=== PATIENT | male | born 1970 | race Hispanic/Latino ===

== ENCOUNTER 2017-04-15 14:36 | Emergency (ER) | payer OTHER ==
[2017-04-15 14:48] VITALS: BP 171/105
[2017-04-15 15:19] LABS: Bilirubin,Urine NEG (Negative); Blood,Urine NEG (Negative); Ketones,Urine NEG (Negative); Leukocyte Esterase,Urine NEG (Negative); Nitrite,Urine NEG (Negative); Protein,Urine <15 mg/dL mg/dL (Negative); Urobilinogen,Urine < 2.0 mg/dL (<2.0)
[2017-04-15 15:23] LABS: Basophils % (Auto) 0.2 % (0.0-1.8); Hematocrit 33.8 % (35.5-45.6); Hemoglobin 10.4 gm/dl (11.8-15.2); Mean Corpuscular HGB Conc 31 % (32-34); Mean Corpuscular Hemoglobin 19 pg (28-32); Mean Corpuscular Volume 61 fl (84-94); Platelet Count 504 K/mm3 (140-440); Red Blood Count 5.53 M/mm3 (3.65-5.03); Red Cell Distribution Width 17.8 % (13.2-15.2); White Blood Count 7.3 K/mm3 (4.5-11.0)
[2017-04-15 15:37] LABS: Alanine Aminotransferase 15 units/L (7-56); Albumin 3.9 g/dL (3.9-5); Albumin/Globulin Ratio 1.1 %; Alkaline Phosphatase 90 units/L (35-129); Anion Gap 18 mmol/L; BUN/Creatinine Ratio 14; Blood Urea Nitrogen 10 mg/dL (9-20); Calcium 9.4 mg/dL (8.4-10.2); Carbon Dioxide 28 mmol/L (22-30); Glucose 126 mg/dL (75-100); Lipase 26 units/L (13-60); Potassium 4.5 mmol/L (3.6-5.0); Sodium 138 mmol/L (137-145); Total Protein 7.4 g/dL (6.3-8.2)
== END 2017-04-15 23:00 | disposition left against medical advice (07) ==
LOC: ED 14:36
DX: R10.9 Unspecified abdominal pain (principal); Z53.21 Procedure and treatment not carried out due to patient leaving prior to being seen by health care provider
CPT/HCPCS: 36415; 80053; 81001; 83690; 85025

== ENCOUNTER 2017-05-26 03:43 | Emergency (ER) | payer SELFPAY ==
[2017-05-26 04:39] VITALS: BP 170/105
[2017-05-26] MEDS ORDERED: TORADOL ONE (06:06)
[2017-05-26] MEDS ORDERED: TORADOL IV ONE (06:08)
[2017-05-26 06:34] LABS: Basophils # (Auto) 0.1 K/mm3 (0.0-0.1); Eosinophils # (Auto) 0.1 K/mm3 (0.0-0.4); Eosinophils % (Auto) 1.4 % (0.0-4.3); Hematocrit 30.3 % (35.5-45.6); Hemoglobin 9.2 gm/dl (11.8-15.2); Lymphocytes % (Auto) 25.2 % (13.4-35.0); Mean Corpuscular HGB Conc 30 % (32-34); Monocytes # (Auto) 0.8 K/mm3 (0.0-0.8); Monocytes % (Auto) 10.5 % (0.0-7.3); Platelet Count 477 K/mm3 (140-440); Red Blood Count 5.15 M/mm3 (3.65-5.03); Red Cell Distribution Width 18.3 % (13.2-15.2)
[2017-05-26 06:38] LABS: Mean Corpuscular Hemoglobin 18 pg (28-32); Mean Corpuscular Volume 59 fl (84-94)
[2017-05-26 06:48] LABS: BUN/Creatinine Ratio 14; Blood Urea Nitrogen 10 mg/dL (9-20); Calcium 9.1 mg/dL (8.4-10.2); Hemolysis Index 8
[2017-05-26 08:53] LABS: Bilirubin,Urine NEG (Negative); Blood,Urine NEG (Negative); Color,Urine Yellow (Yellow); Mucus,Urine FEW /HPF; Nitrite,Urine NEG (Negative); Protein,Urine <15 mg/dL mg/dL (Negative); WBC,Urine < 1.0 /HPF (0.0-6.0)
== END 2017-05-26 06:30 | disposition left against medical advice (07) ==
LOC: ED 03:43
DX: R10.9 Unspecified abdominal pain (principal); Z53.21 Procedure and treatment not carried out due to patient leaving prior to being seen by health care provider
CPT/HCPCS: 36415; 80048; 81001; 85025; J1885

== ENCOUNTER 2017-06-11 17:24 | Emergency (ER) | payer SELFPAY | END 2017-06-11 17:47 | disposition left against medical advice (07) | LOC: ED 17:24 | DX: R10.9 Unspecified abdominal pain (principal); Z53.21 Procedure and treatment not carried out due to patient leaving prior to being seen by health care provider ==

== ENCOUNTER 2018-02-10 07:11 | Emergency (ER) | payer SELFPAY ==
[2018-02-10] MEDS ORDERED: MORPHINE ONE (07:29)
[2018-02-10] MEDS ORDERED: ZOFRAN ONE (07:29)
[2018-02-10] MEDS ORDERED: MORPHINE IV ONE ×3 (07:34→08:58)
[2018-02-10] MEDS ORDERED: ZOFRAN IV ONE (07:34)
[2018-02-10] MEDS ORDERED: NACL 0.9% 1000 ML 1,000 ML IV ONE (07:35)
[2018-02-10 07:42] LABS: Basophils # (Auto) 0.1 K/mm3 (0.0-0.1); Basophils % (Auto) 0.7 % (0.0-1.8); Eosinophils # (Auto) 0.1 K/mm3 (0.0-0.4); Eosinophils % (Auto) 0.6 % (0.0-4.3); Hematocrit 26.8 % (35.5-45.6); Hemoglobin 8.4 gm/dl (11.8-15.2); Lymphocytes # (Auto) 1.4 K/mm3 (1.2-5.4); Lymphocytes % (Auto) 15.6 % (13.4-35.0); Mean Corpuscular HGB Conc 31 % (32-34); Monocytes # (Auto) 0.8 K/mm3 (0.0-0.8); Monocytes % (Auto) 8.8 % (0.0-7.3); Platelet Count 476 K/mm3 (140-440); Red Blood Count 4.79 M/mm3 (3.65-5.03); Red Cell Distribution Width 19.7 % (13.2-15.2)
[2018-02-10 07:45] LABS: Mean Corpuscular Hemoglobin 17 pg (28-32); Mean Corpuscular Volume 56 fl (84-94)
[2018-02-10 07:46] LABS: INR 0.97 (0.87-1.13); Partial Thromboplastin Time 32.6 Sec. (24.2-36.6)
[2018-02-10 07:51] LABS: Alanine Aminotransferase 13 units/L (7-56); Albumin 3.8 g/dL (3.9-5); BUN/Creatinine Ratio 16; Blood Urea Nitrogen 11 mg/dL (9-20); Calcium 8.9 mg/dL (8.4-10.2); Hemolysis Index 4; Lipase 19 units/L (13-60)
--- NOTE | 2018-02-10 07:57 | XRay Report ---
AP CHEST: HISTORY: chest pain AP view of the chest demonstrates a normal mediastinal and cardiac contour with clear lungs and normal bony and soft tissue structures. 5 mm calcified left upper lobe granuloma is suspected. IMPRESSION: No acute cardiopulmonary process.
[2018-02-10] MEDS ORDERED: MORPHINE IM ONE (07:58)
[2018-02-10] MEDS ORDERED: BENADRYL PO ONE (07:58)
--- NOTE | 2018-02-10 08:18 | Emergency Department Report ---
ED General Adult HPI - General Chief complaint: Multiple Trauma Stated complaint: FALL BACK AND STOMACH PAIN Time Seen by Provider: 02/10/18 07:31 Source: patient Mode of arrival: Ambulatory Limitations: No Limitations - History of Present Illness Initial comments: 47-year-old male with a history of chron's disease presents to the emergency department after stating he had a fall while in a safety harness day before yesterday. 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 Patient did not fall to the ground and had no LOC. Patient states however that the pain has continued to increase in his lower left and back region. Patient states he is currently on methadone therapy however this is not controlling his pain. Patient states that he is able to urinate but has not urinated in the past 4 hours. Patient states secondary to the worsening of the pain he presented to the emergency department for evaluation. Patient denies any chest pain or shortness of breath. She denies any hematuria or hematochezia. Severity scale (0 -10): 10 - Related Data Previous Rx's Medication Instructions Recorded Last Taken Type HYDROcodone/APAP 5-325 [[place] 1 each PO Q6HR PRN #14 tablet 08/21/15 Unknown Rx 5/325] Ondansetron [Zofran Odt] 4 mg PO Q8H PRN #10 tab.rapdis 08/21/15 Unknown Rx predniSONE [Deltasone] 20 mg PO QDAY #5 tab 08/21/15 Unknown Rx Cyclobenzaprine [Flexeril] 10 mg PO TID PRN #21 tablet 02/10/18 Unknown Rx Allergies Allergy/AdvReac Type Severity Reaction Status Date / Time No Known Allergies Allergy Unverified 08/20/15 19:06 ED Review of Systems ROS: Stated complaint: FALL BACK AND STOMACH PAIN Other details as noted in HPI Constitutional: malaise, weakness. denies: chills, fever Eyes: denies: eye pain, eye discharge, vision change ENT: denies: ear pain, throat pain Respiratory: denies: cough, shortness of breath, wheezing Cardiovascular: denies: chest pain, palpitations Endocrine: no symptoms reported Gastrointestinal: abdominal pain. denies: nausea, diarrhea Genitourinary: other (retention). denies: urgency, dysuria Musculoskeletal: denies: back pain, joint swelling, arthralgia Skin: denies: rash, lesions Neurological: denies: headache, weakness, paresthesias Psychiatric: denies: anxiety, depression Hematological/Lymphatic: denies: easy bleeding, easy bruising ED Past Medical Hx - Past Medical History Hx Kidney Stones: Yes Additional medical history: Chron's Ds, - Social History Smoking Status: Current Every Day Smoker Substance Use Type: Other - Medications Home Medications: Home Medications Medication Instructions Recorded Confirmed Last Taken Type HYDROcodone/APAP 5-325 [[place] 1 each PO Q6HR PRN #14 tablet 08/21/15 Unknown Rx 5/325] Ondansetron [Zofran Odt] 4 mg PO Q8H PRN #10 tab.rapdis 08/21/15 Unknown Rx predniSONE [Deltasone] 20 mg PO QDAY #5 tab 08/21/15 Unknown Rx Cyclobenzaprine [Flexeril] 10 mg PO TID PRN #21 tablet 02/10/18 Unknown Rx ED Physical Exam - General Limitations: No Limitations General appearance: alert, other (awake; uncomfortable; moderate distress) - Head Head exam: Present: atraumatic, normocephalic - Eye Eye exam: Present: normal appearance - ENT ENT exam: Present: mucous membranes moist - Neck Neck exam: Present: normal inspection - Respiratory Respiratory exam: Present: normal lung sounds bilaterally. Absent: respiratory distress - Cardiovascular Cardiovascular Exam: Present: regular rate, normal rhythm. Absent: systolic murmur, diastolic murmur, rubs, gallop - GI/Abdominal GI/Abdominal exam: Present: soft, normal bowel sounds, other (diffuse abdominal tenderness; rectal examination shows brown stool which is guaiac negative with appropriate controls.) - Rectal Rectal exam: Present: deferred - exam: Present: normal inspection - Extremities Exam Extremities exam: Present: normal inspection - Back Exam Back exam: Present: tenderness (noted in the bilateral flank region), CVA tenderness (R), CVA tenderness (L) - Neurological Exam Neurological exam: Present: alert, oriented X3 - Psychiatric Psychiatric exam: Present: normal affect, normal mood - Skin Skin exam: Present: warm, dry, intact, normal color. Absent: rash ED Course Vital Signs 02/10/18 02/10/18 02/10/18 07:19 07:21 07:30 Temperature 97 F L Pulse Rate 85 85 82 Respiratory 9 L 18 13 Rate Blood Pressure 177/122 177/122 O2 Sat by Pulse 100 100 100 Oximetry 02/10/18 02/10/18 02/10/18 07:35 07:54 08:00 Temperature Pulse Rate 71 Respiratory 22 17 Rate Blood Pressure 162/103 169/104 O2 Sat by Pulse 89 99 Oximetry 02/10/18 02/10/18 08:16 08:30 Temperature Pulse Rate 77 66 Respiratory 16 11 L Rate Blood Pressure 169/104 171/105 O2 Sat by Pulse 97 100 Oximetry ED Medical Decision Making - Lab Data Result diagrams: 02/10/18 07:16 02/10/18 07:16 - Radiology Data Radiology results: report reviewed - Medical Decision Making While in the emergency Department patient received 2 doses of 4 mg of morphine IV. This intervention plus the addition of Flexeril by mouth therapy help to minimize his pain. Patient had a CT abdomen and pelvis showed no acute pathology. Patient made aware of this finding as well. Patient was noted to have a hemoglobin which was 8.4 and this was compared to prior values we had a hemoglobin of 9. Patient denied any active bright red blood per rectum and had a guaiac stool study which showed brown stool which was guaiac negative. Patient to be discharged with Flexeril therapy to take with his daily methadone therapy to control his pain. - Differential Diagnosis hematoma; pneumothorax; hemothorax; Anemia; Electrolyte abnormality Critical care attestation.: If time is entered above; I have spent that time in minutes in the direct care of this critically ill patient, excluding procedure time. ED Disposition Clinical Impression: Flank pain, acute, Crohns disease, Anemia, Acute myofascial strain of lumbar region Clinical Impression: (Ruled Out): Anemia aplastic aregenerative Disposition: - TO HOME OR SELFCARE Is pt being admited?: No Condition: Stable Instructions: Muscle Strain (ED), Flank Pain (ED) Prescriptions: Cyclobenzaprine [Flexeril] 10 mg PO TID PRN #21 tablet PRN Reason: Muscle Spasm Referrals: PRIMARY CARE, [Primary Care Provider] - 3-5 Days Time of Disposition: 09:52 Print Language: FRISIAN
--- NOTE | 2018-02-10 08:25 | Cat Scan Report ---
CT ABDOMEN PELVIS WITHOUT CONTRAST: HISTORY: Abdominal pain status post fall. COMPARISON: none. TECHNIQUE: Helical CT in 1.25mm intervals without IV contrast. Sagittal and coronal reconstructions. FINDINGS: Lung bases: Normal. Liver: Normal. Biliary system: Normal. Pancreas: Normal. Spleen: Normal. Kidneys/ureters/bladder: Normal. Adrenal glands: Normal. Aorta: Normal. Intestines: Normal. Appendix: Normal. Pelvic viscera: Normal. Ascites: None. Adenopathy: None. Musculoskeletal: Normal. IMPRESSION: Unremarkable CT scan of the abdomen and pelvis without contrast.
[2018-02-10 08:39] LABS: Bilirubin,Urine NEG (Negative); Blood,Urine NEG (Negative); Calcium Oxalate Crystals,Urine 1+; Color,Urine Yellow (Yellow); Mucus,Urine FEW /HPF; Protein,Urine <15 mg/dL mg/dL (Negative)
[2018-02-10] MEDS ORDERED: FLEXERIL PO ONE (08:57)
[2018-02-10 10:14] VITALS: BP 166/98
== END 2018-02-10 10:20 | disposition home or self-care (01) ==
LOC: ED 07:11
DX: S39.012A Strain of muscle, fascia and tendon of lower back, initial encounter (principal); D64.9 Anemia, unspecified; K50.90 Crohn's disease, unspecified, without complications; F17.200 Nicotine dependence, unspecified, uncomplicated; W14.XXXA Fall from tree, initial encounter; Y93.89 Activity, other specified; Y92.89 Other specified places as the place of occurrence of the external cause; Y99.8 Other external cause status
CPT/HCPCS: 36415; 71045; 74176; 80053; 81001; 83690; 83735; 85025; 85610; 85730; 96374; 96375; 99284; J2270; J2405

== ENCOUNTER 2019-01-07 03:37 | Inpatient (IN) | payer SELFPAY ==
[2019-01-07 04:19] LABS: Basophils # (Auto) 0.1 K/mm3 (0.0-0.1); Basophils % (Auto) 1.2 % (0.0-1.8); Eosinophils # (Auto) 0.1 K/mm3 (0.0-0.4); Eosinophils % (Auto) 1.3 % (0.0-4.3); Lymphocytes # (Auto) 1.7 K/mm3 (1.2-5.4); Lymphocytes % (Auto) 27.5 % (13.4-35.0); Mean Corpuscular HGB Conc 29 % (32-34); Monocytes # (Auto) 0.8 K/mm3 (0.0-0.8); Monocytes % (Auto) 12.3 % (0.0-7.3); Platelet Count 474 K/mm3 (140-440); Red Blood Count 4.66 M/mm3 (3.65-5.03)
[2019-01-07 04:20] LABS: Hematocrit 23.7 % (35.5-45.6); Hemoglobin 6.8 gm/dl (11.8-15.2); Mean Corpuscular Volume 51 fl (84-94)
[2019-01-07 04:43] LABS: Alanine Aminotransferase 11 units/L (7-56); Albumin 2.8 g/dL (3.9-5); BUN/Creatinine Ratio 13; Blood Urea Nitrogen 10 mg/dL (9-20); Calcium 8.4 mg/dL (8.4-10.2); Hemolysis Index 6
[2019-01-07 05:08] LABS: Bilirubin,Urine NEG (Negative); Blood,Urine NEG (Negative); Color,Urine Yellow (Yellow); Mucus,Urine FEW /HPF; Protein,Urine <15 mg/dL mg/dL (Negative); RBC,Urine < 1.0 /HPF (0.0-6.0); Urobilinogen,Urine < 2.0 mg/dL (<2.0); WBC,Urine < 1.0 /HPF (0.0-6.0)
--- NOTE | 2019-01-07 06:40 | Emergency Department Report ---
ED Abdominal Pain HPI - General Chief Complaint: Abdominal Pain Stated Complaint: ABDOMINAL PAIN Time Seen by Provider: 01/07/19 06:38 Source: patient, EMS Mode of arrival: Ambulatory Limitations: No Limitations - History of Present Illness Initial Comments: Patient is a 48-year-old male that presents emergency room with complaints of abdominal pain 6 months. Patient denies nausea vomiting. Patient states his pain is intermittent but came on about a week ago worse than ever. Patient states the pain right now is a 10 out of 10. Patient states the pain is better with rest and worse with lying flat and palpation. Patient denies blood in his stool. Patient denies change in his bowel movements. Patient denies fever and chills. Patient also complains of occasional dark stool and constipation. She states she's been out of his medications for his Crohn's for 6 months as well. MD Complaint: abdominal pain -: Sudden - Related Data Previous Rx's Medication Instructions Recorded Last Taken Type HYDROcodone/APAP 5-325 [[place] 1 each PO Q6HR PRN #14 tablet 08/21/15 Unknown Rx 5/325] Ondansetron [Zofran Odt] 4 mg PO Q8H PRN #10 tab.rapdis 08/21/15 Unknown Rx predniSONE [Deltasone] 20 mg PO QDAY #5 tab 08/21/15 Unknown Rx Cyclobenzaprine [Flexeril] 10 mg PO TID PRN #21 tablet 02/10/18 Unknown Rx Cyclobenzaprine [Flexeril] 10 mg PO TID PRN #30 tablet 03/01/18 Unknown Rx Menthol/Camphor [[place] 1 applicatio TP TID PRN #1 tube 03/01/18 Unknown Rx Ointment] Naproxen [Naprosyn] 500 mg PO BID PRN #30 tablet 03/01/18 Unknown Rx Allergies Allergy/AdvReac Type Severity Reaction Status Date / Time No Known Allergies Allergy Verified 09/02/18 18:50 ED Review of Systems ROS: Stated complaint: ABDOMINAL PAIN Other details as noted in HPI Constitutional: denies: chills, fever Eyes: denies: eye pain, eye discharge, vision change ENT: denies: ear pain, throat pain Respiratory: denies: cough, shortness of breath, wheezing Cardiovascular: denies: chest pain, palpitations Endocrine: no symptoms reported Gastrointestinal: abdominal pain, constipation, melena. denies: nausea, diarrhea Genitourinary: denies: urgency, dysuria Musculoskeletal: denies: back pain, joint swelling, arthralgia Skin: denies: rash, lesions Neurological: denies: headache, weakness, paresthesias Psychiatric: denies: anxiety, depression Hematological/Lymphatic: denies: easy bleeding, easy bruising ED Past Medical Hx - Past Medical History Previous Medical History?: Yes Hx Hypertension: Yes Hx Congestive Heart Failure: No Hx Diabetes: No Hx Kidney Stones: Yes Hx Asthma: No Hx COPD: No Additional medical history: Chron's Ds,. chronic knee - Surgical History Past Surgical History?: Yes Additional Surgical History: eye - Social History Smoking Status: Former Smoker Substance Use Type: None - Medications Home Medications: Home Medications Medication Instructions Recorded Confirmed Last Taken Type HYDROcodone/APAP 5-325 [[place] 1 each PO Q6HR PRN #14 tablet 08/21/15 Unknown Rx 5/325] Ondansetron [Zofran Odt] 4 mg PO Q8H PRN #10 tab.rapdis 08/21/15 Unknown Rx predniSONE [Deltasone] 20 mg PO QDAY #5 tab 08/21/15 Unknown Rx Cyclobenzaprine [Flexeril] 10 mg PO TID PRN #21 tablet 02/10/18 Unknown Rx Cyclobenzaprine [Flexeril] 10 mg PO TID PRN #30 tablet 03/01/18 Unknown Rx Menthol/Camphor [[place] 1 applicatio TP TID PRN #1 tube 03/01/18 Unknown Rx Ointment] Naproxen [Naprosyn] 500 mg PO BID PRN #30 tablet 03/01/18 Unknown Rx ED Physical Exam - General Limitations: No Limitations General appearance: alert, in no apparent distress - Head Head exam: Present: atraumatic, normocephalic - Eye Eye exam: Present: normal appearance - ENT ENT exam: Present: mucous membranes moist - Neck Neck exam: Present: normal inspection - Respiratory Respiratory exam: Present: normal lung sounds bilaterally. Absent: respiratory distress - Cardiovascular Cardiovascular Exam: Present: regular rate, normal rhythm. Absent: systolic murmur, diastolic murmur, rubs, gallop - GI/Abdominal GI/Abdominal exam: Present: soft, tenderness, normal bowel sounds. Absent: distended, guarding - Rectal Rectal exam: Present: deferred - Extremities Exam Extremities exam: Present: normal inspection - Back Exam Back exam: Present: normal inspection - Neurological Exam Neurological exam: Present: alert, oriented X3 - Psychiatric Psychiatric exam: Present: normal affect, normal mood - Skin Skin exam: Present: warm, dry, intact, normal color. Absent: rash ED Course Vital Signs 01/07/19 01/07/19 01/07/19 03:46 05:32 06:00 Temperature 98.7 F 98.4 F Pulse Rate 95 H 79 82 Respiratory 18 14 13 Rate Blood Pressure 156/101 153/99 Blood Pressure 159/100 [Left] O2 Sat by Pulse 100 100 100 Oximetry 01/07/19 01/07/19 07:00 07:40 Temperature 98.5 F Pulse Rate 66 Respiratory 14 Rate Blood Pressure 133/76 Blood Pressure [Left] O2 Sat by Pulse 100 Oximetry - Reevaluation(s) Reevaluation #1: I discussed all results with patient. Patient agrees with plan of care. She will be admitted to the hospitalist service. 01/07/19 08:19 Reevaluation #2: Patient has decided not to be admitted. 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 Patient states his driving. Patient was just given Dilaudid. Charge nurse notified and the local PD has been notified as well. I discussed the risks with patient of leaving the hospitalist medical advice and not being admitted. The patient voiced understanding of risks. Patient will sign an AMA form. 01/07/19 08:58 - Consultations Consultation #1: GI Paged. 01/07/19 08:20 Discussed case with GI, Dr. Glasgow. Dr. Glasgow wants patient given a PPI and nothing by mouth and admitted to the hospitalist service. 01/07/19 08:31 Consultation #2: Hospitalist consult. Hospitalist to admit patient. Bridge orders placed 01/07/19 08:31 ED Medical Decision Making - Lab Data Result diagrams: 01/07/19 03:48 01/07/19 03:48 - Radiology Data Radiology results: report reviewed CT ABDOMEN AND PELVIS WITH CONTRAST HISTORY: Abdominal pain, Crohn's disease COMPARISON: 09/02/2018 TECHNIQUE: Axial CT images were obtained through the abdomen and pelvis after 100 cc of Omnipaque 300 intravenously. Sagittal and coronal reformatted images. All CT scans at this location are performed using CT dose reduction for ALARA by means of automated exposure control. FINDINGS: CT ABDOMEN: Lung Bases: Clear. Liver: Borderline to mild hepatomegaly. No parenchymal disease or mass. Biliary: No significant abnormality. Spleen: Borderline to mild splenomegaly is stable. Pancreas: No significant abnormality. Adrenals: No significant abnormality. Kidneys: No significant abnormality. Lymphatics: No lymphadenopathy. Vasculature: No significant abnormality. Bowel/Peritoneum: No oral contrast was administered. There appear to be multiple relatively focal areas of circumferential bowel wall thickening and narrowing in the proximal, mid and distal small bowel. These findings are consistent with skipped lesions associated with Crohn's disease. There are a few borderline to mildly dilated loops of small bowel scattered throughout the abdomen measuring up to 3.5 cm in diameter. No obvious area of acute inflammation is appreciated. No free fluid, free air or abscess. The colon is grossly normal and contains moderate stool. The appendix is not confidently identified. No evidence for acute appendicitis. CT PELVIS: : No significant abnormality. Osseous Structures: No significant abnormality. Additional Findings: None IMPRESSION: Findings consistent with Crohn's disease as outlined above. No overwhelming change is appreciated since 09/02/2018 exam. - Medical Decision Making is a 48-year-old male that presents emergency room with complaints of abdominal pain 6 months. Patient has a long history of Crohn's but has not had any specialty care or treatment for his Crohn's. Patient found to have a Crohn's flareup as well as lots of abdominal pain and severe anemia. Patient had change in his stool color to dark. Patient complains of melena. Patient originally was admitted to the hospitalist service but patient eventually decided not to be admitted and signed out AMA. I discussed all the risks with patient. Patient was of sound mind and body to make the decision to leave the hospital AGAINST MEDICAL ADVICE. Patient signed AMA. Patient voiced und erstanding of risks of leaving the hospital AGAINST MEDICAL ADVICE. GI was consult. - Differential Diagnosis Crohn's disease. Nichole. Upper GI bleed. Abdominal pain. Critical Care Time: Yes Critical care attestation.: If time is entered above; I have spent that time in minutes in the direct care of this critically ill patient, excluding procedure time. Critical Care Time: 45 minutes ED Disposition Clinical Impression: Melena Anemia Qualifiers: Anemia type: unspecified type Qualified Code(s): D64.9 - Anemia, unspecified Abdominal pain Qualifiers: Abdominal location: generalized Qualified Code(s): R10.84 - Generalized abdominal pain Crohn disease Qualifiers: Gastrointestinal tract location: small intestine Digestive disease complication type: with rectal bleeding Qualified Code(s): K50.011 - Crohn's disease of small intestine with rectal bleeding Disposition: 07 LEFT AGAINST MED ADVICE Is pt being admited?: Yes Does the pt Need Aspirin: No Condition: Critical Time of Disposition: 08:24
[2019-01-07 07:18] VITALS: BP 133/76
[2019-01-07] MEDS ORDERED: DILAUDID IV ONE ×2 (07:31→08:17)
--- NOTE | 2019-01-07 07:57 | Cat Scan Report ---
CT ABDOMEN AND PELVIS WITH CONTRAST HISTORY: Abdominal pain, Crohn's disease COMPARISON: 09/02/2018 TECHNIQUE: Axial CT images were obtained through the abdomen and pelvis after 100 cc of Omnipaque 300 intravenously. Sagittal and coronal reformatted images. All CT scans at this location are performed using CT dose reduction for ALARA by means of automated exposure control. FINDINGS: CT ABDOMEN: Lung Bases: Clear. Liver: Borderline to mild hepatomegaly. No parenchymal disease or mass. Biliary: No significant abnormality. Spleen: Borderline to mild splenomegaly is stable. Pancreas: No significant abnormality. Adrenals: No significant abnormality. Kidneys: No significant abnormality. Lymphatics: No lymphadenopathy. Vasculature: No significant abnormality. Bowel/Peritoneum: No oral contrast was administered. There appear to be multiple relatively focal are as of circumferential bowel wall thickening and narrowing in the proximal, mid and distal small bowel . These findings are consistent with skipped lesions associated with Crohn's disease. There are a few borderline to mildly dilated loops of small bowel scattered throughout the abdomen measuring up to 3 .5 cm in diameter. No obvious area of acute inflammation is appreciated. No free fluid, free air or a bscess. The colon is grossly normal and contains moderate stool. The appendix is not confidently iden tified. No evidence for acute appendicitis. CT PELVIS: : No significant abnormality. Osseous Structures: No significant abnormality. Additional Findings: None IMPRESSION: Findings consistent with Crohn's disease as outlined above. No overwhelming change is appreciated sin ce 09/02/2018 exam. Signer Name: Chris Mccoy Jr, MD Signed: 01/07/2019 7:52 AM Workstation Name: [id number]
[2019-01-07] MEDS ORDERED: NACL 0.9% 500 ML 500 ML IV ONE (08:17)
[2019-01-07] MEDS ORDERED: NACL 0.9% 1000 ML 1,000 ML IV ONE (08:17)
[2019-01-07] MEDS ORDERED: SOLU-Medrol ONE (08:25)
[2019-01-07] MEDS ORDERED: SOLU-Medrol IV ONE (08:45)
[2019-01-07] MEDS ORDERED: PROTONIX 80 MG in NACL 0.9% 100 ML IV SCH (09:00)
== END 2019-01-07 09:00 | disposition left against medical advice (07) | DRG 387 ==
LOC: ED 03:37 → 3A 08:25
PROVIDERS: ADMIT Internal Medicine; ATTEND Internal Medicine
DX: K50.011 Crohn's disease of small intestine with rectal bleeding (principal); I10 Essential (primary) hypertension; D64.9 Anemia, unspecified; Z87.442 Personal history of urinary calculi; Z79.899 Other long term (current) drug therapy
CPT/HCPCS: 36415; 74177; 80053; 81001; 85025; 86850; 86900; 86901; 86920; 96374; G0378; C9113; J1170; J2930; Q9967

== ENCOUNTER 2019-02-20 22:23 | Emergency (ER) | payer SELFPAY ==
[2019-02-20 23:16] LABS: Bacteria,Urine 1+ /HPF (Negative); Bilirubin,Urine NEG (Negative); Blood,Urine NEG (Negative); Color,Urine Yellow (Yellow); Mucus,Urine FEW /HPF; Protein,Urine <15 mg/dL mg/dL (Negative)
[2019-02-20 23:33] LABS: Alanine Aminotransferase 11 units/L (7-56); Albumin 3.2 g/dL (3.9-5); BUN/Creatinine Ratio 11; Blood Urea Nitrogen 10 mg/dL (9-20); Calcium 8.5 mg/dL (8.4-10.2); Hemolysis Index 0
[2019-02-20 23:43] LABS: Hematocrit 32.7 % (35.5-45.6); Hemoglobin 9.8 gm/dl (11.8-15.2); Mean Corpuscular Volume 62 fl (84-94); Red Blood Count 5.25 M/mm3 (3.65-5.03)
[2019-02-20 23:44] LABS: Mean Corpuscular HGB Conc 30 % (32-34); Mean Platelet Volume 7.9 fl (6-12); Platelet Count 410 K/mm3 (140-440); Red Cell Distribution Width 35.4 % (13.2-15.2)
[2019-02-21] MEDS ORDERED: ONDANSETRON 4 MG/2 ML INJ IV ONE (01:40)
[2019-02-21] MEDS ORDERED: SODIUM CHLORIDE 0.9% 1000 ML 1,000 ML IV ONE (01:40)
[2019-02-21] MEDS ORDERED: predniSONE 20 MG TAB PO ONE (01:46)
[2019-02-21] MEDS ORDERED: KETOROLAC 30 MG/1 ML INJ IV ONE (01:46)
[2019-02-21] MEDS ORDERED: dexAMETHasone 20 MG/5 ML VIAL IV ONE (01:46)
--- NOTE | 2019-02-21 01:54 | Emergency Department Report ---
ED Abdominal Pain HPI - General Chief Complaint: Abdominal Pain Stated Complaint: CHRONES FLAIR UP Time Seen by Provider: 02/21/19 01:39 Source: patient Mode of arrival: Ambulatory Limitations: Physical Limitation - History of Present Illness Initial Comments: pt is a 48 y/o w/m with hx of Crohns who presents for abdominal pain, seen last month for same , negative ct, dc to home on prednisone, ultram, pepcid was to follow up with GI but states he has no insurance., Pain today is 4/10 on 1-10 scale, pt is tolerating po intake , states some constipation but easily relived with otc laxitive. states he is out of prednisone and has not been able to see GI, at some spice food which initiated this flare. There is no fever or chills no n/v, will check labs ad kub, if labs normal, ct if labs abnormal for infection. vital signs are stable at this time. MD Complaint: abdominal pain Onset/Timin -: week(s) Location: [facility] Radiation: LLQ Migration to: Q Severity scale (0 -10): 4 Quality: cramping, aching Consistency: intermittent Improves With: nothing Worsens With: eating Associated Symptoms: nausea, constipation. denies: vomiting, diarrhea, fever, chills, dysuria, hematemesis, hematochezia, melena, hematuria, anorexia, syncope - Related Data Previous Rx's Medication Instructions Recorded Last Taken Type HYDROcodone/APAP 5-325 [[place] 1 each PO Q6HR PRN #14 tablet 08/21/15 Unknown Rx 5/325] Ondansetron [Zofran Odt] 4 mg PO Q8H PRN #10 tab.rapdis 08/21/15 Unknown Rx predniSONE [Deltasone] 20 mg PO QDAY #5 tab 08/21/15 Unknown Rx Cyclobenzaprine [Flexeril] 10 mg PO TID PRN #21 tablet 02/10/18 Unknown Rx Cyclobenzaprine [Flexeril] 10 mg PO TID PRN #30 tablet 03/01/18 Unknown Rx Menthol/Camphor [[place] 1 applicatio TP TID PRN #1 tube 03/01/18 Unknown Rx Ointment] Naproxen [Naprosyn] 500 mg PO BID PRN #30 tablet 03/01/18 Unknown Rx Prednisone [predniSONE 10 mg 10 mg PO .TAPER #1 tab.ds.pk 01/15/19 Unknown Rx (6-Day Pack, 21 Tabs)] oxyCODONE /ACETAMINOPHEN [Percocet 1 tab PO Q6HR PRN #15 tablet 01/15/19 Unknown Rx 5/325] Bisacodyl [Dulcolax suppos] [address] ONCE PRN #7 supp.rect 02/21/19 Unknown Rx Polyethylene Glycol 3350 [Miralax 17 gm PO BID PRN #14 packet 02/21/19 Unknown Rx 3350] predniSONE [Deltasone] 10 mg PO .TAPER #21 tab 02/21/19 Unknown Rx Allergies Allergy/AdvReac Type Severity Reaction Status Date / Time No Known Allergies Allergy Verified 01/15/19 15:46 ED Review of Systems ROS: Stated complaint: CHRONES FLAIR UP Other details as noted in HPI Constitutional: denies: chills, fever Eyes: denies: eye pain, eye discharge, vision change ENT: denies: ear pain, throat pain Respiratory: denies: cough, shortness of breath, wheezing Cardiovascular: denies: chest pain, palpitations Endocrine: no symptoms reported Gastrointestinal: as per HPI, abdominal pain, nausea, constipation (intermittent.). denies: vomiting, diarrhea, hematemesis, melena Genitourinary: denies: urgency, dysuria, frequency, hematuria Musculoskeletal: denies: back pain, joint swelling, arthralgia Skin: denies: rash, lesions Neurological: denies: headache, weakness, paresthesias Psychiatric: denies: anxiety, depression Hematological/Lymphatic: denies: as per HPI, easy bleeding, easy bruising ED Past Medical Hx - Past Medical History Hx Hypertension: Yes Hx Congestive Heart Failure: No Hx Diabetes: No Hx Kidney Stones: Yes Hx Asthma: No Hx COPD: No Additional medical history: Chron's Ds,. chronic knee - Surgical History Additional Surgical History: eye - Social History Smoking Status: Unknown if ever smoked Substance Use Type: None - Medications Home Medications: Home Medications Medication Instructions Recorded Confirmed Last Taken Type HYDROcodone/APAP 5-325 [[place] 1 each PO Q6HR PRN #14 tablet 08/21/15 Unknown Rx 5/325] Ondansetron [Zofran Odt] 4 mg PO Q8H PRN #10 tab.rapdis 08/21/15 Unknown Rx predniSONE [Deltasone] 20 mg PO QDAY #5 tab 08/21/15 Unknown Rx Cyclobenzaprine [Flexeril] 10 mg PO TID PRN #21 tablet 02/10/18 Unknown Rx Cyclobenzaprine [Flexeril] 10 mg PO TID PRN #30 tablet 03/01/18 Unknown Rx Menthol/Camphor [[place] 1 applicatio TP TID PRN #1 tube 03/01/18 Unknown Rx Ointment] Naproxen [Naprosyn] 500 mg PO BID PRN #30 tablet 03/01/18 Unknown Rx Prednisone [predniSONE 10 mg 10 mg PO .TAPER #1 tab.ds.pk 01/15/19 Unknown Rx (6-Day Pack, 21 Tabs)] oxyCODONE /ACETAMINOPHEN [Percocet 1 tab PO Q6HR PRN #15 tablet 01/15/19 Unknown Rx 5/325] Bisacodyl [Dulcolax suppos] [address] ONCE PRN #7 supp.rect 02/21/19 Unknown Rx Polyethylene Glycol 3350 [Miralax 17 gm PO BID PRN #14 packet 02/21/19 Unknown Rx 3350] predniSONE [Deltasone] 10 mg PO .TAPER #21 tab 02/21/19 Unknown Rx ED Physical Exam - General Limitations: Physical Limitation General appearance: alert, in no apparent distress - Head Head exam: Present: atraumatic, normocephalic - Eye Eye exam: Present: normal appearance, PERRL, EOMI Pupils: Present: normal accommodation - ENT ENT exam: Present: mucous membranes moist - Neck Neck exam: Present: normal inspection, full ROM. Absent: tenderness, lymphadenopathy - Respiratory Respiratory exam: Present: normal lung sounds bilaterally. Absent: respiratory distress, wheezes, stridor, chest wall tenderness - Cardiovascular Cardiovascular Exam: Present: regular rate, normal rhythm, normal heart sounds. Absent: systolic murmur, diastolic murmur, rubs, gallop - GI/Abdominal GI/Abdominal exam: Present: soft, tenderness (mild llq ), normal bowel sounds. Absent: distended, guarding, rebound, rigid, bruit, hernia - Expanded GI/Abdominal Exam Expanded GI/Abdominal exam: Absent: psoas sign, obturator sign, heel tap sign, Tubbs's sign, Rovsing's sign, tenderness at [place]'s [place], ascites - Rectal Rectal exam: Present: deferred - Extremities Exam Extremities exam: Present: normal inspection, full ROM, normal capillary refill. Absent: tenderness - Back Exam Back exam: Present: normal inspection, full ROM. Absent: tenderness, CVA tenderness (R), CVA tenderness (L), muscle spasm, rash noted - Neurological Exam Neurological exam: Present: alert, oriented X3, CN II-XII intact, normal gait - Psychiatric Psychiatric exam: Present: normal affect, normal mood - Skin Skin exam: Present: warm, dry, intact, normal color. Absent: rash ED Course Vital Signs 02/20/19 02/20/19 02/21/19 22:28 22:44 02:37 Temperature 98.5 F 98.5 F Pulse Rate 71 71 Respiratory 18 18 16 Rate Blood Pressure 180/107 180/107 O2 Sat by Pulse 100 100 Oximetry ED Medical Decision Making - Lab Data Result diagrams: 02/20/19 22:53 02/20/19 22:53 Labs 02/20/19 02/20/19 02/20/19 22:53 22:53 Unknown WBC 5.4 RBC 5.25 H Hgb 9.8 L Hct 32.7 L MCV 62 L MCH 19 L MCHC 30 L RDW 35.4 H Plt Count 410 Sodium 141 Potassium 4.7 Chloride 106.1 Carbon Dioxide 26 Anion Gap 14 BUN 10 Creatinine 0.9 Estimated GFR > 60 BUN/Creatinine Ratio 11 Glucose 95 Calcium 8.5 Total Bilirubin 0.20 AST 22 ALT 11 Alkaline Phosphatase 96 Total Protein 6.6 Albumin 3.2 L Albumin/Globulin Ratio 0.9 Lipase 36 Urine Color Yellow Urine Turbidity Slightly-cloudy Urine pH 6.0 Ur Specific [place] 1.017 Urine Protein <15 mg/dl Urine Glucose (UA) Neg Urine Ketones Neg Urine Blood Neg Urine Nitrite Neg Urine Bilirubin Neg Urine Urobilinogen 2.0 Ur Leukocyte Esterase Neg Urine WBC (Auto) 1.0 Urine RBC (Auto) 3.0 Urine Bacteria (Auto) 1+ Urine Mucus Few - Radiology Data Radiology results: report reviewed, image reviewed Ordering Physician: SURAJ SHAW NP Date of Service: 02/21/19 Procedure(s): XR abdomen 1V ap Accession Number(s): [id number] cc: SURAJ SHAW NP Fluoro Time In Minutes: ABDOMEN AP SUPINE 0201 INDICATION: abdominal pain, history of Crohn's disease, worsening for 6 months, nausea, diarrhea, abdominal pain, decreased appetite COMPARISON: 09/03/2018, 08/20/2015 FINDINGS: Gas and stool are seen throughout the colon without dilatation. No bowel dilatation is seen. I do not see evidence of bowel obstruction. No urinary tract calculi are seen. Signer Name: Baljeet Ferrara MD Signed: 02/21/2019 2:20 AM Workstation Name: [id number] Transcribed By: CHITO Dictated By: Baljeet Ferrara MD Electronically Authenticated By: Baljeet Ferrara MD Signed Date/Time: 02/21/19219 DD/ 8 TD/TT: - Medical Decision Making labs today better than baseline, kub: nonobstructive gas pattern, moderate stool throughout large bowel, no symptoms of obstruction. Pain is improved, to 2/10, pt is tolerating po intake there is no fever or chills pt will dc 'd to home in stable condition. Critical care attestation.: If time is entered above; I have spent that time in minutes in the direct care of this critically ill patient, excluding procedure time. ED Disposition Clinical Impression: Abdominal pain Qualifiers: Abdominal location: unspecified location Qualified Code(s): R10.9 - Unspecified abdominal pain Constipation Qualifiers: Constipation type: unspecified constipation type Qualified Code(s): K59.00 - C onstipation, unspecified Disposition: DC-01 TO HOME OR SELFCARE Is pt being admited?: No Does the pt Need Aspirin: No Condition: Stable Instructions: High Fiber Diet (ED), Constipation (ED), Irritable Bowel Syndrome (ED) Prescriptions: predniSONE [Deltasone] 10 mg PO .TAPER #21 tab Bisacodyl [Dulcolax suppos] [address] ONCE PRN #7 supp.rect PRN Reason: Constipation Polyethylene Glycol 3350 [Miralax 3350] 17 gm PO BID PRN #14 packet PRN Reason: Constipation Referrals: [facility] [Provider Group] - 3-5 Days [facility] [Outside] - 3-5 Days Forms: Work/School Release Form(ED) Time of Disposition: 03:09
--- NOTE | 2019-02-21 02:25 | XRay Report ---
ABDOMEN AP SUPINE 0201 INDICATION: abdominal pain, history of Crohn's disease, worsening for 6 months, nausea, diarrhea, abd ominal pain, decreased appetite COMPARISON: 09/03/2018, 08/20/2015 FINDINGS: Gas and stool are seen throughout the colon without dilatation. No bowel dilatation is seen . I do not see evidence of bowel obstruction. No urinary tract calculi are seen. Signer Name: Baljeet Ferrara MD Signed: 02/21/2019 2:20 AM Workstation Name: [email or web address]
[2019-02-21 02:27] LABS: Eosinophils # (Auto) 0.1 K/mm3 (0.0-0.4); Eosinophils % (Auto) 1.3 % (0.0-4.3); Monocytes # (Auto) 0.5 K/mm3 (0.0-0.8); Monocytes % (Auto) 9.7 % (0.0-7.3)
[2019-02-21 02:35] LABS: Eosinophils % (Manual) 0 % (0.0-4.3); Total Cells Counted 100
[2019-02-21 02:36] LABS: Anisocytosis 1+
[2019-02-21 02:37] LABS: Hypochromasia Few
[2019-02-21 02:39] LABS: Macrocytosis Rare
[2019-02-21 02:40] LABS: Large Platelets 1+; Platelet Estimate Cons; Schistocytes Rare
[2019-02-21 03:48] VITALS: BP 161/106
== END 2019-02-21 03:45 | disposition home or self-care (01) ==
LOC: ED 22:23
DX: K59.00 Constipation, unspecified (principal); I10 Essential (primary) hypertension; Z87.442 Personal history of urinary calculi; Z79.899 Other long term (current) drug therapy
CPT/HCPCS: 36415; 74018; 80053; 81001; 83690; 85007; 85025; 96361; 96374; 96375; 99284; J1100; J1885; J2405; J7030; J7512

== ENCOUNTER 2019-06-08 10:31 | Emergency (ER) | payer SELFPAY ==
[2019-06-08 10:35] VITALS: BP 140/94
[2019-06-08] MEDS ORDERED: ONDANSETRON 4 MG/2 ML INJ IV ONE (10:54)
[2019-06-08] MEDS ORDERED: SODIUM CHLORIDE 0.9% 1000 ML 1,000 ML IV ONE (10:54)
[2019-06-08] MEDS ORDERED: LORazepam 2 MG/ML VIAL IV ONE (10:55)
--- NOTE | 2019-06-08 10:56 | Emergency Department Report ---
ED Abdominal Pain HPI - General Chief Complaint: Abdominal Pain Stated Complaint: WEAK/DIZZY/FAINT Time Seen by Provider: 06/08/19 10:49 Source: patient Mode of arrival: Wheelchair Limitations: No Limitations - History of Present Illness Initial Comments: Patient is a 49-year-old male that comes to the ER today because he has not had his methadone 3 days. He went to the methadone clinic but they sent him to the emergency room for evaluation before they would dispense his methadone. He states this is because he was complaining of abdominal pain. Patient denied it he cannot afford the methadone today. He is asking for narcotics. Patient has been on methadone daily for 12 years for chronic pain. He denies SI or HI. He denies auditory or visual hallucinations. Vital signs are stable on admission to the ER. Patient denies taking any medications at home on a daily basis other than his methadone. Patient denies any medical history despite the EMR reflecting other medical conditions for which the patient's been treated for. - Related Data Previous Rx's Medication Instructions Recorded Last Taken Type HYDROcodone/APAP 5-325 [[place] 1 each PO Q6HR PRN #14 tablet 08/21/15 Unknown Rx 5/325] Ondansetron [Zofran Odt] 4 mg PO Q8H PRN #10 tab.rapdis 08/21/15 Unknown Rx predniSONE [Deltasone] 20 mg PO QDAY #5 tab 08/21/15 Unknown Rx Cyclobenzaprine [Flexeril] 10 mg PO TID PRN #21 tablet 02/10/18 Unknown Rx Cyclobenzaprine [Flexeril] 10 mg PO TID PRN #30 tablet 03/01/18 Unknown Rx Menthol/Camphor [[place] 1 applicatio TP TID PRN #1 tube 03/01/18 Unknown Rx Ointment] Naproxen [Naprosyn] 500 mg PO BID PRN #30 tablet 03/01/18 Unknown Rx Prednisone [predniSONE 10 mg 10 mg PO .TAPER #1 tab.ds.pk 01/15/19 Unknown Rx (6-Day Pack, 21 Tabs)] oxyCODONE /ACETAMINOPHEN [Percocet 1 tab PO Q6HR PRN #15 tablet 01/15/19 Unknown Rx 5/325] Polyethylene Glycol 3350 [Miralax 17 gm PO BID PRN #14 packet 02/21/19 Unknown Rx 3350] bisacodyL [Dulcolax suppos] 10 mg [place] ONCE PRN #7 supp.rect 02/21/19 Unknown Rx predniSONE [Deltasone] 10 mg PO .TAPER #21 tab 02/21/19 Unknown Rx traMADoL [Ultram] 50 mg PO Q6HR PRN #12 tablet 02/21/19 Unknown Rx Allergies Allergy/AdvReac Type Severity Reaction Status Date / Time No Known Allergies Allergy Verified 01/15/19 15:46 ED Review of Systems ROS: Stated complaint: WEAK/DIZZY/FAINT Other details as noted in HPI Comment: All other systems reviewed and negative ED Past Medical Hx - Past Medical History Previous Medical History?: Yes Hx Hypertension: Yes Hx Congestive Heart Failure: No Hx Diabetes: No Hx Kidney Stones: Yes Hx Asthma: No Hx COPD: No Additional medical history: Chron's. chronic knee - Surgical History Past Surgical History?: Yes Additional Surgical History: eye - Family History Family history: no significant - Social History Smoking Status: Never Smoker Substance Use Type: None - Medications Home Medications: Home Medications Medication Instructions Recorded Confirmed Last Taken Type HYDROcodone/APAP 5-325 [[place] 1 each PO Q6HR PRN #14 tablet 08/21/15 Unknown Rx 5/325] Ondansetron [Zofran Odt] 4 mg PO Q8H PRN #10 tab.rapdis 08/21/15 Unknown Rx predniSONE [Deltasone] 20 mg PO QDAY #5 tab 08/21/15 Unknown Rx Cyclobenzaprine [Flexeril] 10 mg PO TID PRN #21 tablet 02/10/18 Unknown Rx Cyclobenzaprine [Flexeril] 10 mg PO TID PRN #30 tablet 03/01/18 Unknown Rx Menthol/Camphor [[place] 1 applicatio TP TID PRN #1 tube 03/01/18 Unknown Rx Ointment] Naproxen [Naprosyn] 500 mg PO BID PRN #30 tablet 03/01/18 Unknown Rx Prednisone [predniSONE 10 mg 10 mg PO .TAPER #1 tab.ds.pk 01/15/19 Unknown Rx (6-Day Pack, 21 Tabs)] oxyCODONE /ACETAMINOPHEN [Percocet 1 tab PO Q6HR PRN #15 tablet 01/15/19 Unknown Rx 5/325] Polyethylene Glycol 3350 [Miralax 17 gm PO BID PRN #14 packet 02/21/19 Unknown Rx 3350] bisacodyL [Dulcolax suppos] 10 mg [place] ONCE PRN #7 supp.rect 02/21/19 Unknown Rx predniSONE [Deltasone] 10 mg PO .TAPER #21 tab 02/21/19 Unknown Rx traMADoL [Ultram] 50 mg PO Q6HR PRN #12 tablet 02/21/19 Unknown Rx ED Physical Exam - General Limitations: No Limitations General appearance: alert, in no apparent distress, anxious - Head Head exam: Present: atraumatic, normocephalic - Eye Eye exam: Present: normal appearance - ENT ENT exam: Present: mucous membranes moist - Neck Neck exam: Present: normal inspection - Respiratory Respiratory exam: Present: normal lung sounds bilaterally. Absent: respiratory distress - Cardiovascular Cardiovascular Exam: Present: regular rate, normal rhythm. Absent: systolic murmur, diastolic murmur, rubs, gallop - GI/Abdominal GI/Abdominal exam: Present: soft, normal bowel sounds - Rectal Rectal exam: Present: deferred - Extremities Exam Extremities exam: Present: normal inspection - Back Exam Back exam: Present: normal inspection - Neurological Exam Neurological exam: Present: alert, oriented X3 - Psychiatric Psychiatric exam: Present: normal affect, normal mood - Skin Skin exam: Present: warm, dry, intact, normal color. Absent: rash ED Course Vital Signs 06/08/19 10:34 Temperature 98.7 F Pulse Rate 82 Respiratory 16 Rate Blood Pressure 140/94 O2 Sat by Pulse 99 Oximetry ED Medical Decision Making - Lab Data Result diagrams: 06/08/19 11:11 06/08/19 11:11 - Radiology Data Radiology results: report reviewed, image reviewed - Medical Decision Making Labs 06/08/19 06/08/19 11:11 11:11 WBC 6.0 RBC 4.90 Hgb 9.3 L Hct 30.4 L MCV 62 L MCH 19 L MCHC 31 L RDW 16.2 H Plt Count 504 H Lymph % (Auto) 12.9 L [place] % (Auto) 4.3 Eos % (Auto) 0.0 Baso % (Auto) 0.9 Lymph # 0.8 L [place] # 0.3 Eos # 0.0 Baso # 0.1 Seg Neutrophils % 81.9 H Seg Neutrophils # 4.9 Sodium 139 Potassium 4.0 Chloride 103.6 Carbon Dioxide 21 L Anion Gap 18 BUN 7 L Creatinine 0.8 Estimated GFR > 60 BUN/Creatinine Ratio 9 Glucose 99 Calcium 8.6 Total Bilirubin 0.30 AST 21 ALT 13 Alkaline Phosphatase 99 Total Protein 6.8 Albumin 3.2 L Albumin/Globulin Ratio 0.9 Vital Signs 06/08/19 10:34 Temperature 98.7 F Pulse Rate 82 Respiratory 16 Rate Blood Pressure 140/94 O2 Sat by Pulse [address] Mccabe. Patient has no active nausea and vomiting in the emergency room. He is requesting narcotics for his methadone missed doses. 12 PM Nurse came to provider to tell me that patient has eloped. 911 has been called and police notified because patient has an INT in his hand. Charge nurse aware. Critical care attestation.: If time is entered above; I have spent that time in minutes in the direct care of this critically ill patient, excluding procedure time. ED Disposition Clinical Impression: Abdominal pain, Methadone dependence Disposition: ELOPED Is pt being admited?: No Does the pt Need Aspirin: No Condition: Stable Time of Disposition: 12:04
[2019-06-08 11:42] LABS: Basophils # (Auto) 0.1 K/mm3 (0.0-0.1); Basophils % (Auto) 0.9 % (0.0-1.8); Hematocrit 30.4 % (35.5-45.6); Hemoglobin 9.3 gm/dl (11.8-15.2); Lymphocytes # (Auto) 0.8 K/mm3 (1.2-5.4); Lymphocytes % (Auto) 12.9 % (13.4-35.0); Mean Corpuscular HGB Conc 31 % (32-34); Mean Corpuscular Volume 62 fl (84-94); Monocytes # (Auto) 0.3 K/mm3 (0.0-0.8); Monocytes % (Auto) 4.3 % (0.0-7.3); Platelet Count 504 K/mm3 (140-440); Red Cell Distribution Width 16.2 % (13.2-15.2)
[2019-06-08 11:49] LABS: Alanine Aminotransferase 13 units/L (7-56); Albumin 3.2 g/dL (3.9-5); BUN/Creatinine Ratio 9; Blood Urea Nitrogen 7 mg/dL (9-20); Calcium 8.6 mg/dL (8.4-10.2); Hemolysis Index 3
--- NOTE | 2019-06-08 12:07 | XRay Report ---
Chest and abdominal series. 06/08/2019. HISTORY: Chest/abdominal pain. Chest one view: Heart size is normal. The lungs are clear. Two-view abdomen: Gas is scattered throughout the abdomen in a nonobstructive fashion. Negative for f ree air or suspicious calcification. Signer Name: Elvis Valdez MD Signed: 06/08/2019 12:02 PM Workstation Name: [id number]
== END 2019-06-08 11:46 | disposition left against medical advice (07) ==
LOC: ED 10:31
DX: R10.9 Unspecified abdominal pain (principal); F15.229 Other stimulant dependence with intoxication, unspecified; I10 Essential (primary) hypertension; G89.29 Other chronic pain
CPT/HCPCS: 36415; 74022; 80053; 85025

== ENCOUNTER 2019-08-19 16:18 | Emergency (ER) | payer SELFPAY ==
[2019-08-19 17:05] LABS: Basophils # (Auto) 0.1 K/mm3 (0.0-0.1); Eosinophils # (Auto) 0.1 K/mm3 (0.0-0.4); Eosinophils % (Auto) 0.6 % (0.0-4.3); Monocytes % (Auto) 10.1 % (0.0-7.3)
[2019-08-19 17:14] LABS: Basophils % (Auto) 0.6 % (0.0-1.8); Hematocrit 25.4 % (35.5-45.6); Hemoglobin 7.5 gm/dl (11.8-15.2); Lymphocytes # (Auto) 1.5 K/mm3 (1.2-5.4); Lymphocytes % (Auto) 16.8 % (13.4-35.0); Mean Corpuscular HGB Conc 30 % (32-34); Platelet Count 742 K/mm3 (140-440); Red Blood Count 4.82 M/mm3 (3.65-5.03); Red Cell Distribution Width 19.5 % (13.2-15.2)
[2019-08-19 17:20] LABS: Mean Corpuscular Volume 53 fl (84-94)
[2019-08-19 17:26] LABS: Calcium 9.7 mg/dL (8.4-10.2)
[2019-08-19] MEDS ORDERED: NALOXONE 0.4 MG/1 ML INJ IV PRN (17:54)
[2019-08-19] MEDS ORDERED: ALPRAZolam 0.5 MG TAB PO PRN (17:54)
[2019-08-19] MEDS ORDERED: ONDANSETRON 4 MG ODT TAB PO PRN (17:56)
--- NOTE | 2019-08-19 18:01 | Emergency Department Report ---
ED General Adult HPI - General Chief complaint: Overdose Stated complaint: EVAL Time Seen by Provider: 08/19/19 16:52 Source: patient, RN notes reviewed, old records reviewed Mode of arrival: Ambulatory Limitations: No Limitations - History of Present Illness Initial comments: Patient is a 49-year-old gentleman. I have evaluated this patient in the past. He has a past medical history of schizophrenia/psychiatric disease, and he also endorses a past medical history of Crohn's disease, and he is not currently on chronic therapy for this. The patient presents to the ER today with a complaint of suicidality and overdose. He states that he overdosed on 4 bottles of liquid methadone yesterday. He does not know how many milligrams were in the methadone, and he does not know the concentration. He denies physical pain and trauma at this time. He denies additional coingestions. The patient states he is still suicidal. He is not homicidal. He will not describe hallucinations and he appears to be responding to internal stimuli. He further endorses that his roommate brought him to the emergency room. His ingestion took place "before lunch yesterday." He does not have an exact time of ingestion. He is not accompanied by friends or family at this time who can offer collateral information for exact time of ingestion. Patient does not describe exacerbating or relieving factors, or qualitative nature of her symptoms, except as described. Denies fever, headache, neck pain, chest pain, abdominal pain, urinary symptoms, cough, exposure to coronavirus, there is no complaint of focal extremity weakness and or numbness, and there were no urinary symptoms. -: days(s) Severity scale (0 -10): 5 Quality: other Consistency: other Improves with: other Worsens with: other Associated Symptoms: other - Related Data Home Medications Medication Instructions Recorded Confirmed Last Taken Methadone [Dolophine] 9 mg PO QDAY 08/19/19 08/19/19 Unknown Previous Rx's Medication Instructions Recorded Last Taken Type Citalopram [celeXA] 20 mg PO QDAY #30 tablet 08/24/[address] [DepaKOTE DR] 125 mg PO BID #60 tablet 08/24/19 Unknown Rx buPROPion [Wellbutrin] 100 mg PO TID #90 tab 08/24/19 Unknown Rx clonazePAM [ Klonopin] 0.5 mg PO BID PRN #60 tab 08/24/19 Unknown Rx Allergies Allergy/AdvReac Type Severity Reaction Status Date / Time No Known Allergies Allergy Verified 08/19/19 16:22 ED Review of Systems ROS: Stated complaint: MH EVAL Other details as noted in HPI Comment: See history of present Constitutional: no symptoms reported Eyes: denies: eye discharge ENT: denies: dental pain Respiratory: denies: wheezing Cardiovascular: denies: syncope Gastrointestinal: denies: vomiting Genitourinary: as per HPI Musculoskeletal: as per HPI Skin: as per HPI Neurological: as per HPI Psychiatric: as per HPI Hematological/Lymphatic: as per HPI ED Past Medical Hx - Past Medical History Hx Hypertension: Yes Hx Congestive Heart Failure: No Hx Diabetes: No Hx Kidney Stones: Yes Hx Psychiatric Treatment: Yes (BIPOLAR SCHIZOPHERNIC) Hx Asthma: No Hx COPD: No Additional medical history: Chron's. chronic knee - Surgical History Additional Surgical History: eye - Social History Smoking Status: Never Smoker Substance Use Type: Heroin, Other - Medications Home Medications: Home Medications Medication Instructions Recorded Confirmed Last Taken Type Methadone [Dolophine] 9 mg PO QDAY 08/19/19 08/19/19 Unknown History Citalopram [celeXA] 20 mg PO QDAY #30 tablet 08/24/[address] [DepaKOTE DR] 125 mg PO BID #60 tablet 08/24/19 Unknown Rx buPROPion [Wellbutrin] 100 mg PO TID #90 tab 08/24/19 Unknown Rx clonazePAM [ Klonopin] 0.5 mg PO BID PRN #60 tab 08/24/19 Unknown Rx ED Physical Exam - General Limitations: Other (Patient withdrawn, and appears to be responding to internal stimuli) General appearance: alert, in no apparent distress - Head Head exam: Present: atraumatic, normocephalic - Eye Eye exam: Present: normal appearance, EOMI. Absent: nystagmus - ENT ENT exam: Present: normal exam, normal orophraynx, mucous membranes moist, normal external ear exam - Neck Neck exam: Present: normal inspection, full ROM. Absent: tenderness, meningismus - Respiratory Respiratory exam: Present: normal lung sounds bilaterally. Absent: respiratory distress - Cardiovascular Cardiovascular Exam: Present: regular rate, normal rhythm, normal heart sounds. Absent: bradycardia, tachycardia, irregular rhythm, systolic murmur, diastolic murmur, rubs, gallop - GI/Abdominal GI/Abdominal exam: Present: soft, normal bowel sounds. Absent: distended, tenderness, guarding, rebound, rigid, pulsatile mass - Rectal Rectal exam: Present: deferred - Extremities Exam Extremities exam: Present: normal inspection, full ROM, other (2+ pulses noted in the bilateral upper and lower extremities. There is no palpable cord. negative Homans sign. Muscular compartments are soft. The pelvis is stable.). Absent: pedal edema, calf tenderness - Back Exam Back exam: Present: normal inspection, full ROM. Absent: tenderness, CVA tenderness (R), CVA tenderness (L), paraspinal tenderness, vertebral tenderness - Neurological Exam Neurological exam: Present: alert (Patient is alert to name, thinks the is 2016, and knows the location), normal gait, other (No facial droop. Tongue midline. Extraocular movements intact bilaterally. Facial sensation intact to light touch in V1, V2, V3 distribution bilaterally. 5 and a 5 strength in 4 extremities. Sensation intact to light touch in 4 extremities.). Absent: motor sensory deficit - Psychiatric Psychiatric exam: Present: flat affect, suicidal ideation - Skin Skin exam: Present: warm, dry, intact, normal color. Absent: rash ED Course Vital Signs 08/19/19 08/19/19 08/19/19 16:23 17:04 17:05 Temperature 98.6 F 99.3 F Pulse Rate 93 H 94 H Respiratory 24 16 Rate Blood Pressure 143/84 Blood Pressure 126/77 [Left] O2 Sat by Pulse 100 98 98 Oximetry 08/19/19 08/19/19 08/19/19 17:15 17:31 17:45 Temperature Pulse Rate 86 89 90 Respiratory 13 13 14 Rate Blood Pressure 127/73 134/69 120/76 Blood Pressure [Left] O2 Sat by Pulse 98 100 98 Oximetry 08/19/19 08/19/19 08/19/19 18:00 18:15 18:30 Temperature Pulse Rate 89 83 95 H Respiratory 14 14 17 Rate Blood Pressure 118/73 118/73 135/82 Blood Pressure [Left] O2 Sat by Pulse 99 98 97 Oximetry 08/19/19 08/19/19 08/19/19 18:45 19:01 19:15 Temperature Pulse Rate 90 96 H 85 Respiratory 11 L 11 L 13 Rate Blood Pressure 136/73 122/78 122/78 Blood Pressure [Left] O2 Sat by Pulse 98 99 98 Oximetry 08/19/19 08/19/19 08/19/19 19:30 19:45 20:00 Temperature Pulse Rate 86 83 83 Respiratory 16 17 17 Rate Blood Pressure 127/78 119/69 116/65 Blood Pressure [Left] O2 Sat by Pulse 98 98 98 Oximetry 08/19/19 08/19/19 08/19/19 20:15 20:30 20:45 Temperature Pulse Rate 83 84 79 Respiratory 15 14 14 Rate Blood Pressure 122/71 115/70 110/73 Blood Pressure [Left] O2 Sat by Pulse 100 98 Oximetry 08/19/19 08/19/19 08/19/19 21:00 21:30 22:30 Temperature Pulse Rate 82 81 81 Respiratory 12 13 15 Rate Blood Pressure 119/71 125/74 105/57 Blood Pressure [Left] O2 Sat by Pulse 99 100 99 Oximetry 08/19/19 08/19/19 08/20/19 23:00 23:15 00:00 Temperature Pulse Rate 80 81 82 Respiratory 17 16 12 Rate Blood Pressure 113/63 133/80 122/79 Blood Pressure [Left] O2 Sat by Pulse 98 98 100 Oximetry 08/20/19 08/20/19 08/20/19 00:45 01:00 01:31 Temperature Pulse Rate 78 76 73 Respiratory 17 15 17 Rate Blood Pressure 122/79 124/79 142/90 Blood Pressure [Left] O2 Sat by Pulse 99 100 99 Oximetry 08/20/19 08/20/19 08/20/19 01:45 02:00 02:32 Temperature 98.5 F Pulse Rate 75 74 81 Respiratory 12 14 14 Rate Blood Pressure 142/90 126/74 Blood Pressure 124/79 [Left] O2 Sat by Pulse 99 100 100 Oximetry 08/20/19 08/20/19 08/20/19 03:01 05:01 06:00 Temperature Pulse Rate 77 73 80 Respiratory 10 L 15 15 Rate Blood Pressure 124/79 119/68 109/67 Blood Pressure [Left] O2 Sat by Pulse 99 98 100 Oximetry 08/20/19 08/20/19 08/20/19 07:01 07:37 08:01 Temperature 97.9 F Pulse Rate 73 73 80 Respiratory 18 18 10 L Rate Blood Pressure 119/68 119/44 Blood Pressure 109/67 [Left] O2 Sat by Pulse 98 99 99 Oximetry 08/20/19 08/20/19 08/20/19 08:31 15:00 20:00 Temperature 98 F 99.3 F Pulse Rate 79 84 Respiratory 18 17 18 Rate Blood Pressure Blood Pressure 143/92 128/75 [Left] O2 Sat by Pulse 99 98 Oximetry 08/20/19 08/21/19 08/21/19 21:28 01:00 08:43 Temperature 98.9 F Pulse Rate 80 Respiratory 18 16 18 Rate Blood Pressure Blood Pressure 130/70 [Left] O2 Sat by Pulse 99 98 Oximetry 08/21/19 08/21/19 08/21/19 08:54 14:00 19:50 Temperature 98.0 F 98.6 F 99.2 F Pulse Rate 88 89 87 Respiratory 18 18 18 Rate Blood Pressure 147/95 Blood Pressure 145/99 116/89 [Left] O2 Sat by Pulse 98 98 Oximetry 08/21/19 08/22/19 08/22/19 21:33 01:39 07:37 Temperature 98.2 F 98.4 F Pulse Rate 88 85 Respiratory 18 18 20 Rate Blood Pressure 145/95 Blood Pressure 152/98 [Left] O2 Sat by Pulse 98 100 Oximetry 08/22/19 08/22/19 08/23/19 11:07 19:04 01:48 Temperature 98.4 F 97.5 F L Pulse Rate 82 81 Respiratory 20 18 16 Rate Blood Pressure Blood Pressure 137/84 151/98 [Left] O2 Sat by Pulse 99 99 Oximetry 08/23/19 08/23/19 08/24/19 07:43 20:20 01:50 Temperature 97.9 F 98.5 F 98.2 F Pulse Rate 88 82 86 Respiratory 20 18 16 Rate Blood Pressure Blood Pressure 127/100 131/80 140/89 [Left] O2 Sat by Pulse 99 99 99 Oximetry 08/24/19 08/24/19 08/24/19 08:00 11:05 12:32 Temperature 98.2 F 98.1 F Pulse Rate 76 87 Respiratory 18 18 18 Rate Blood Pressure Blood Pressure 131/88 127/83 [Left] O2 Sat by Pulse 99 100 Oximetry - Reevaluation(s) Reevaluation #1: 08/19/19 18:31 Differential diagnosis, including not limited to: Psychosis, mood disorder, overdose, medical clearance Assessment and plan: 49-year-old gentleman who is actively suicidal, withdrawn, disorganized, reporting methadone overdose. He is afebrile with reassuring vital signs at this time. He is withdrawn and disorganized, and does not appear to exhibit the ability to care for himself independently, and is still actively suicidal. He is therefore placed on a 1013. His screening laboratory studies are unremarkable as of now. His EKG is unchanged from prior. Patient will be observed in the ER for 23 hours from the time of first medical contact. His case was discussed with the [place] poison control center, specifically discussed with Ms. Magana, who did recommend at least 23 to 24 hours of observation, given prolonged half-life of methadone, unknown exact time of ingestion, and lack of collateral information to corroborate time of ingestion. Given the current coronavirus pandemic, and the possible need for inpatient beds for acutely medically ill patients, patient will be observed in this department, he will be signed out to the nighttime doctor, who will then sign the patient out to me at 4 PM tomorrow when I resume my shift 08/19/19 18:33 Microcytic anemia is chronic, and asymptomatic, and appears to be within baseline levels The patient's microcytic anemia is chronic, has been present since 2018, trending his laboratory studies back, these labs do not need to be repeated, they are asymptomatic, and this will be managed medically as an outpatient and does not represent an acute medical contraindication to psychiatric except and placement 08/20/19 17:18 Reevaluation #2: 08/20/19 01:25 Patient observed for hours without clinical decompensation. Care will be transferred to the overnight physician, Dr. Sushant Blanco , to transfer the patient to the morning physician, who will in turn to the patient over to me when I resume my shift today at 4:00 PM. Reevaluation #3: 08/20/19 16:20 Patient observed for over 24 hours without clinical decompensation or episodes of respiratory depression. Vital signs have remained stable and unremarkable. At this point in time, the patient does not appear to have an immediate medical contraindication to psychiatric admission, evaluation, consultation and placement. He may be taken off of a satellite project site monitor, and placed in a general psychiatric room ED Medical Decision Making - Lab Data Result diagrams: 08/24/19 10:44 08/24/19 10:44 Vital Signs 08/19/19 08/19/19 16:23 17:05 Temperature 98.6 F 99.3 F Pulse Rate 93 H 94 H Respiratory 24 16 Rate Blood Pressure 143/84 Blood Pressure 126/77 [Left] O2 Sat by Pulse 100 98 Oximetry Lab Results 08/19/19 08/19/19 08/19/19 Range/Units 16:51 16:51 16:51 WBC (4.5-11.0) K/mm3 RBC (3.65-5.03) M/mm3 Hgb (11.8-15.2) gm/dl Hct (35.5-45.6) % MCV (84-94) fl MCH (28-32) pg MCHC (32-34) % RDW (13.2-15.2) % Plt Count (140-440) K/mm3 Lymph % (Auto) (13.4-35.0) % Coles % (Auto) (0.0-7.3) % Eos % (Auto) (0.0-4.3) % Baso % (Auto) (0.0-1.8) % Lymph # (1.2-5.4) K/mm3 Coles # (0.0-0.8) K/mm3 Eos # (0.0-0.4) K/mm3 Baso # (0.0-0.1) K/mm3 Seg Neutrophils % (40.0-70.0) % Seg Neutrophils # (1.8-7.7) K/mm3 Sodium 139 (137-145) mmol/L Potassium 4.1 (3.6-5.0) mmol/L Chloride 94.1 L (98-107) mmol/L Carbon Dioxide 26 (22-30) mmol/L Anion Gap 23 mmol/L BUN 22 H (9-20) mg/dL Creatinine 1.4 (0.8-1.5) mg/dL Estimated GFR 54 ml/min BUN/Creatinine Ratio 16 % Glucose 88 (75-100) mg/dL Calcium 9.7 (8.4-10.2) mg/dL Urine Color (Yellow) Urine Turbidity (Clear) Urine pH (5.0-7.0) Ur Specific Concan (1.003-1.030) Urine Protein (Negative) mg/dL Urine Glucose (UA) (Negative) mg/dL Urine Ketones (Negative) mg/dL Urine Blood (Negative) Urine Nitrite (Negative) Urine Bilirubin (Negative) Urine Urobilinogen (<2.0) mg/dL Ur Leukocyte Esterase (Negative) Urine WBC (Auto) (0.0-6.0) /HPF Urine RBC (Auto) (0.0-6.0) /HPF U Epithel Cells (Auto) (0-13.0) /HPF Hyaline Casts /LPF Urine Mucus /HPF Salicylates 2.5 L (2.8-20.0) mg/dL Acetaminophen < 5.0 L (10.0-30.0) ug/mL Ur Barbiturates Screen Ur Phencyclidine Scrn Urine Cocaine Screen Plasma/Serum Alcohol (0-0.07) % 08/19/19 08/19/19 08/19/19 Range/Units 16:51 16:51 17:13 WBC 9.2 (4.5-11.0) K/mm3 RBC 4.82 (3.65-5.03) M/mm3 Hgb 7.5 L (11.8-15.2) gm/dl Hct 25.4 L (35.5-45.6) % MCV 53 L (84-94) fl MCH 16 L (28-32) pg MCHC 30 L (32-34) % RDW 19.5 H (13.2-15.2) % Plt Count 742 H (140-440) K/mm3 Lymph % (Auto) 16.8 (13.4-35.0) % Coles % (Auto) 10.1 H (0.0-7.3) % Eos % (Auto) 0.6 (0.0-4.3) % Baso % (Auto) 0.6 (0.0-1.8) % Lymph # 1.5 (1.2-5.4) K/mm3 Coles # 1.0 H (0.0-0.8) K/mm3 Eos # 0.1 (0.0-0.4) K/mm3 Baso # 0.1 (0.0-0.1) K/mm3 Seg Neutrophils % 71.0 H (40.0-70.0) % Seg Neutrophils # 6.9 (1.8-7.7) K/mm3 Sodium (137-145) mmol/L Potassium (3.6-5.0) mmol/L Chloride (98-107) mmol/L Carbon Dioxide (22-30) mmol/L Anion Gap mmol/L BUN (9-20) mg/dL Creatinine (0.8-1.5) mg/dL Estimated GFR ml/min BUN/Creatinine Ratio % Glucose (75-100) mg/dL Calcium (8.4-10.2) mg/dL Urine Color Eufemia (Yellow) Urine Turbidity Clear (Clear) Urine pH 5.0 (5.0-7.0) Ur Specific [place]can 1.026 (1.003-1.030) Urine Protein <15 mg/dl (Negative) mg/dL Urine Glucose (UA) Neg (Negative) mg/dL Urine Ketones Neg (Negative) mg/dL Urine Blood Neg (Negative) Urine Nitrite Neg (Negative) Urine Bilirubin Neg (Negative) Urine Urobilinogen 2.0 (<2.0) mg/dL Ur Leukocyte Esterase Neg (Negative) Urine WBC (Auto) 5.0 (0.0-6.0) /HPF Urine RBC (Auto) 3.0 (0.0-6.0) /HPF U Epithel Cells (Auto) < 1.0 (0-13.0) /HPF Hyaline Casts 3 /LPF Urine Mucus 2+ /HPF Salicylates (2.8-20.0) mg/dL Acetaminophen (10.0-30.0) ug/mL Ur Barbiturates Screen Ur Phencyclidine Scrn Urine Cocaine Screen Plasma/Serum Alcohol < 0.01 (0-0.07) % 08/19/19 Range/Units 17:13 WBC (4.5-11.0) K/mm3 RBC (3.65-5.03) M/mm3 Hgb (11.8-15.2) gm/dl Hct (35.5-45.6) % MCV (84-94) fl MCH (28-32) pg MCHC (32-34) % RDW (13.2-15.2) % Plt Count (140-440) K/mm3 Lymph % (Auto) (13.4-35.0) % Coles % (Auto) (0.0-7.3) % Eos % (Auto) (0.0-4.3) % Baso % (Auto) (0.0-1.8) % Lymph # (1.2-5.4) K/mm3 Coles # (0.0-0.8) K/mm3 Eos # (0.0-0.4) K/mm3 Baso # (0.0-0.1) K/mm3 Seg Neutrophils % (40.0-70.0) % Seg Neutrophils # (1.8-7.7) K/mm3 Sodium (137-145) mmol/L Potassium (3.6-5.0) mmol/L Chloride (98-107) mmol/L Carbon Dioxide (22-30) mmol/L Anion Gap mmol/L BUN (9-20) mg/dL Creatinine (0.8-1.5) mg/dL Estimated GFR ml/min BUN/Creatinine Ratio % Glucose (75-100) mg/dL Calcium (8.4-10.2) mg/dL Urine Color (Yellow) Urine Turbidity (Clear) Urine pH (5.0-7.0) Ur Specific [place] (1.003-1.030) Urine Protein (Negative) mg/dL Urine Glucose (UA) (Negative) mg/dL Urine Ketones (Negative) mg/dL Urine Blood (Negative) Urine Nitrite (Negative) Urine Bilirubin (Negative) Urine Urobilinogen (<2.0) mg/dL Ur Leukocyte Esterase (Negative) Urine WBC (Auto) (0.0-6.0) /HPF Urine RBC (Auto) (0.0-6.0) /HPF U Epithel Cells (Auto) (0-13.0) /HPF Hyaline Casts /LPF Urine Mucus /HPF Salicylates (2.8-20.0) mg/dL Acetaminophen (10.0-30.0) ug/mL Ur Barbiturates Screen Presumptive negative Ur Phencyclidine Scrn Presumptive negative Urine Cocaine Screen Presumptive negative Plasma/Serum Alcohol (0-0.07) % - EKG Data -: EKG Interpreted by Ak EKG shows normal: sinus rhythm Rate: normal - EKG Data 08/19/19 18:29 The EKG today shows a sinus rhythm, 88 bpm, normal axis, QTC prolonged, WI interval within normal limits, borderline high left ventricular voltage, motion artifact, not a STEMI the EKG today appears to be unchanged from prior EKG. There is minimal motion artifact Critical care attestation.: If time is entered above; I have spent that time in minutes in the direct care of this critically ill patient, excluding procedure time. ED Disposition Clinical Impression: Overdose, Medical clearance for psychiatric admission, Chronic anemia Psychosis Qualifiers: Psychosis type: other Qualified Code(s): F28 - Other psychotic disorder not due to a substance or known physiological condition Crohn's disease Qualifiers: Gastrointestinal tract location: unspecified location Digestive disease complication type: unspecified complication Qualified Code(s): K50.919 - Crohn's disease, unspecified, with unspecified complications Disposition: DC/TX-65 PSY HOSP/PSY UNIT Is pt being admited?: No Does the pt Need Aspirin: No Condition: Stable Prescriptions: Citalopram [celeXA] 20 mg PO QDAY #[address] [DepaKOTE DR] 125 mg PO BID #60 tablet clonazePAM [ Klonopin] 0.5 mg PO BID PRN #60 tab PRN Reason: Anxiety buPROPion [Wellbutrin] 100 mg PO TID #90 tab Referrals: PRIMARY CARE, [Primary Care Provider] - 3-5 Days
[2019-08-19 18:10] LABS: Bilirubin,Urine NEG (Negative); Blood,Urine NEG (Negative); Color,Urine Amber (Yellow); Hyaline Casts,Urine 3 /LPF; Mucus,Urine 2+ /HPF; Protein,Urine <15 mg/dL mg/dL (Negative)
[2019-08-19 18:17] LABS: Cocaine Screen,Urine PRESUMPTIVE NEGATIVE
[2019-08-19 18:29] LABS: Amphetamine Screen,Urine PRESUMPTIVE POSITIVE; Benzodiazepines Screen,Urine PRESUMPTIVE POSITIVE; Cannabinoid Screen,Urine PRESUMPTIVE POSITIVE; Methadone Screen,Urine PRESUMPTIVE POSITIVE; Opiate Screen,Urine PRESUMPTIVE POSITIVE
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
[2019-08-20] MEDS: clonazePAM 0.5 MG TAB PO SCH ×2 (10:02→21:58)
[2019-08-20] MEDS: CITALOPRAM 20 MG TAB PO SCH (10:50)
[2019-08-20] MEDS: buPROPion 100 MG TAB PO SCH ×2 (14:40→21:58)
[2019-08-20] MEDS ORDERED: FLUoxetine 20 MG CAP PO SCH (18:00)
[2019-08-21] MEDS: buPROPion 100 MG TAB PO SCH ×3 (09:00→21:21)
--- NOTE | 2019-08-21 09:50 | Progress Note ---
Subjective - Reason for Consult Consult date: 08/21/19 Reason for consult: MHE Requesting physician: EVELIA REGALADO - Chief Complaint Chief complaint: Per ED Nurse: Pt resting quietly throughout shift. Occasionally ambulatory with steady gait to restroom. No distress noted. Respirations even and non-labored. Will continue to monitor. HPI In my interview with the patient this morning, the patient reports mood as depressed. Appetite is improving. Sleep last night was very poor, unable to sleep, symptoms attributed to his withdrawal symptoms. Patient requesting for methadone. Patient endorses current SI, HI and also AH and contracts to ask the staff for help if any of these symptoms increase MENTAL STATUS EXAMINATION General Appearance and Behavior: Age appropriate, fair hygiene, wearing appropriate clothes, lying in bed, good eye contact, cooperative Cooperation: Participating Psychomotor Behavior: unremarkable and within normal limits Mood: Depressed Affect and affective range: decreased range, depressed and sad Thought Process: Fluent/Logical Thought Content: Auditory hallucination Speech: Normal volume Intellectual Functioning: Average Suicidal Ideation: Suicidal Homicidal Ideation: Denies HI Impulse Control: Impaired Insight and Judgment: Normal insight Memory: Normal Attention: Normal, Orientation: Alert, oriented - Psychiatric problem (1) Major depressive disorder, recurrent episode, severe Current Visit: Yes Status: Acute (2) Schizoaffective disorder, bipolar type Current Visit: Yes Status: Acute (3) Suicide attempt by drug overdose Current Visit: Yes Status: Acute (4) Substance induced mood disorder Current Visit: Yes Status: Acute (5) Opioid use disorder, severe, dependence Current Visit: Yes Status: Acute (6) PTSD (post-traumatic stress disorder) Current Visit: Yes Status: Acute RECOMMENDATIONS MEDICATIONS: Melatonin 10 mg for sleep. Continue current meds. Clonidine .1 PRN for Tachycardie due to withdrawal Conitinue Citalopram for depression adjunct with Buproprion. Klonopin given hx of benzo dependence and abuse. Risks, benefits and alternatives of medications discussed with the patient, questions answered and consent obtained from patient. PSYCHOTHERAPY: Supportive psychotherapy provided MEDICAL: Per primary team DELIRIUM PRECAUTIONS: Please re-orient patient frequently, keep lights on during the day, and minimize benzodiazepines and opiates as these medications could worsen patient's confusion. BUFFER INFLATED PAD: Yes DISPOSITION: indication for acute inpatient psychiatric hospitalization at this time LEGAL STATUS: 1013 FOLLOW-UP: Will follow Thank you for the consult. Please contact with any questions and/or concerns. Mental Status Exam - Vital signs Last Vital Signs Temp 98.0 F 08/21/19 08:54 Pulse 88 08/21/19 08:54 Resp 18 08/21/19 08:54 BP 145/99 08/21/19 08:54 Pulse Ox 98 08/21/19 08:43 Assessment and Plan - Patient Problems (1) Major depressive disorder, recurrent episode, severe Current Visit: Yes Status: Acute (2) Schizoaffective disorder, bipolar type Current Visit: Yes Status: Acute (3) Suicide attempt by drug overdose Current Visit: Yes Status: Acute (4) Substance induced mood disorder Current Visit: Yes Status: Acute (5) Opioid use disorder, severe, dependence Current Visit: Yes Status: Acute (6) PTSD (post-traumatic stress disorder) Current Visit: Yes Status: Acute
[2019-08-21] MEDS ORDERED: cloNIDine 0.1 MG TAB PO PRN (09:59)
[2019-08-21] MEDS: CITALOPRAM 20 MG TAB PO SCH (10:15)
[2019-08-21] MEDS: clonazePAM 0.5 MG TAB PO SCH ×2 (10:15→21:35)
[2019-08-21] MEDS: ACETAMINOPHEN 325 MG TAB PO PRN ×2 (14:24→21:33)
[2019-08-21] MEDS: MELATONIN 5 MG TAB PO SCH (21:35)
[2019-08-22] MEDS: buPROPion 100 MG TAB PO SCH ×3 (08:21→20:25)
[2019-08-22] MEDS: ACETAMINOPHEN 325 MG TAB PO PRN (10:51)
[2019-08-22] MEDS: clonazePAM 0.5 MG TAB PO SCH ×2 (10:51→22:01)
[2019-08-22] MEDS: CITALOPRAM 20 MG TAB PO SCH (10:53)
--- NOTE | 2019-08-22 12:59 | Progress Note ---
Subjective - Reason for Consult Consult date: 08/22/19 Reason for consult: MHE Requesting physician: EVELIA REGALADO - Chief Complaint Chief complaint: Per ED Nurse: Pt resting quietly throughout shift. Occasionally ambulatory with steady gait to restroom. No distress noted. Respirations even and non-labored. Will continue to monitor. HPI In my interview with the patient this morning, he reports eating good, slight improvement in sleep and feeling better. The patient is requesting methadone, says if he cant get it here, we should release him to another facility that can. MENTAL STATUS EXAMINATION General Appearance and Behavior: Age appropriate, fair hygiene, wearing appropriate clothes, lying in bed, good eye contact, cooperative Cooperation: Participating Psychomotor Behavior: unremarkable and within normal limits Mood: good Affect and affective range: anxious, irritated and elated Thought Process: Fluent/Logical Thought Content: Auditory hallucination Speech: Normal volume Intellectual Functioning: Average Suicidal Ideation: Suicidal Homicidal Ideation: Denies HI Impulse Control: Impaired Insight and Judgment: Normal insight Memory: Normal Attention: Normal, Orientation: Alert, oriented - Psychiatric problem (1) Major depressive disorder, recurrent episode, severe Current Visit: Yes Status: Acute (2) Schizoaffective disorder, bipolar type Current Visit: Yes Status: Acute (3) Suicide attempt by drug overdose Current Visit: Yes Status: Acute (4) Substance induced mood disorder Current Visit: Yes Status: Acute (5) Opioid use disorder, severe, dependence Current Visit: Yes Status: Acute (6) PTSD (post-traumatic stress disorder) Current Visit: Yes Status: Acute RECOMMENDATIONS MEDICATIONS: Melatonin 10 mg for sleep. Continue current meds. Clonidine .1 PRN for Tachycardie due to withdrawal Conitinue Citalopram for depression adjunct with Buproprion. Klonopin given hx of benzo dependence and abuse. Risks, benefits and alternatives of medications discussed with the patient, questions answered and consent obtained from patient. PSYCHOTHERAPY: Supportive psychotherapy provided MEDICAL: Per primary team DELIRIUM PRECAUTIONS: Please re-orient patient frequently, keep lights on during the day, and minimize benzodiazepines and opiates as these medications could worsen patient's confusion. 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 Please contact with any questions and/or concerns. Mental Status Exam - Vital signs Last Vital Signs Temp 98.4 F 08/22/19 07:37 Pulse 85 08/22/19 07:37 Resp 20 08/22/19 11:07 BP 152/98 08/22/19 07:37 Pulse Ox 100 08/22/19 07:37 Assessment and Plan - Patient Problems (1) Major depressive disorder, recurrent episode, severe Current Visit: Yes Status: Acute (2) Schizoaffective disorder, bipolar type Current Visit: Yes Status: Acute (3) Suicide attempt by drug overdose Current Visit: Yes Status: Acute (4) Substance induced mood disorder Current Visit: Yes Status: Acute (5) Opioid use disorder, severe, dependence Current Visit: Yes Status: Acute (6) PTSD (post-traumatic stress disorder) Current Visit: Yes Status: Acute
[2019-08-22] MEDS: MELATONIN 5 MG TAB PO SCH (22:01)
[2019-08-23] MEDS: HALOPERIDOL LACTATE 5 MG/1 ML INJ IM PRN ×2 (03:33→13:54)
[2019-08-23] MEDS: buPROPion 100 MG TAB PO SCH ×3 (09:00→20:05)
[2019-08-23] MEDS: clonazePAM 0.5 MG TAB PO SCH ×2 (10:30→23:23)
[2019-08-23] MEDS: CITALOPRAM 20 MG TAB PO SCH (10:30)
--- NOTE | 2019-08-23 12:46 | Progress Note ---
Subjective - Reason for Consult Consult date: 08/23/19 Reason for consult: overdose - Chief Complaint Chief complaint: Chief complaint: The patient's medical record was reviewed at the patient's progress was discussed with the nursing staff. Olu Zamorano is a 49y/o male who states he was admitted into the ER for "methadone overdose." The patient is a/o x 3. He makes good eye contact. He says he's "100 percent better." The patient's account of his overdose is conflicting. He first states he "took the methadone because I was upset." He later says "I wasn't trying to kill myself. I was trying to get high." He tells me he wants to "get home to his , Jaquelin." When asking if I could speak with her he said "she doesn't know I'm here, and I forgot the number." He denies hallucinations of any kind. He says his appetite is "better." REVIEW OF SYSTEMS Constitutional: Negative for weight loss ENT: Negative for stridor Respiratory: Negative for cough or hemoptysis All other systems reviewed and are negative MENTAL STATUS EXAMINATION General Appearance: Dressed appropriately Behavior: calm and cooperative Mood: "100 percent better" Affect: Restricted Speech: Normal tone and pace Thought Process: Goal directed Thought Content: Suicidal Ideation: Denies Homicidal Ideation: Denies Hallucinations: Denies Delusions: None elicited Insight and Judgment: Limited Memory/Cognition: Limited Assessment Substance Induced Mood Disorder Plan Medications Depakote DR 125mg po BID Sitter: Defer to primary Medical: Per primary Disposition: The patient meets the criteria for acute inpatient psychiatric treatment. He may transfer to a psychiatric facility once medically cleared. Will continue to follow the patient and monitor her progress and side effects of medications, until transferred or improvement of her condition. Will assess discharging the patient tomorrow if he progresses well thought the night. The treatment plan and medications, including benefits and side effects was discussed with the patient. She verbalizes understanding. Please call with any questions or concerns. Thank you for this consult. Mental Status Exam - Vital signs Last Vital Signs Temp 97.9 F 08/23/19 07:43 Pulse 88 08/23/19 07:43 Resp 20 08/23/19 07:43 BP 127/100 08/23/19 07:43 Pulse Ox 99 08/23/19 07:43
[2019-08-23] MEDS: DIVALPROEX DR 125 MG TAB PO SCH ×2 (15:06→23:22)
[2019-08-23] MEDS ORDERED: LORazepam 2 MG/ML VIAL IM ONE (20:33)
[2019-08-23] MEDS ORDERED: LORazepam 2 MG/ML VIAL ONE (20:36)
[2019-08-23] MEDS: MELATONIN 5 MG TAB PO SCH (23:23)
[2019-08-24] MEDS: buPROPion 100 MG TAB PO SCH (08:13)
[2019-08-24] MEDS: CITALOPRAM 20 MG TAB PO SCH (10:23)
[2019-08-24] MEDS: clonazePAM 0.5 MG TAB PO SCH (10:23)
[2019-08-24] MEDS: DIVALPROEX DR 125 MG TAB PO SCH (10:23)
[2019-08-24] MEDS ORDERED: SODIUM CHLORIDE 0.9% 1000 ML 1,000 ML IV ONE (11:09)
[2019-08-24] MEDS ORDERED: PANTOPRAZOLE 40 MG INJ IV ONE (11:09)
--- NOTE | 2019-08-24 11:16 | Emergency Department Report ---
ED General Adult HPI - General Chief complaint: Overdose Stated complaint: NAN EVAL Time Seen by Provider: 08/19/19 16:52 Source: patient, RN notes reviewed, old records reviewed Mode of arrival: Ambulatory Limitations: Other (Patient withdrawn, and appears to be responding to internal stimuli) - History of Present Illness Initial comments: 49-year-old man in psychiatric holding was brought to my attention by the nurse. She was told by [facility] that his hemoglobin was too low for transfer. She stated that he had been stable. I updated his laboratory database. His hemoglobin on the was 7.5. Patient states that he is having right lower quadrant pain. He thinks he might of had a chill. He had a bowel movement with a moderate amount of hematochezia. He states that he was scheduled for a transfusion 6 months ago but he "chickened out". He states he will not check in at this time if transfusion is required. Apparently this patient left AMA when he was found to be substantially anemic in 2019: Hospital course: Mr. Zamorano is a 48-year-old male with known history of hypertension noncompliant with meds and Crohn's disease was admitted through ED with complaints of abdominal pain, lower back pain, and constipation. Symptomatically managed, evaluated by GI,advised steroids,evaluated by surgery adv symptomatic management ,clear liquids advance as tolerated.However patient refiused treatment and left AMA Discharge Diagnosis: --? Partial Small bowel obstruction; Patient is nothing by mouth status, surgery evaluation and recommendations noted and appreciated Recommend clear liquid diet, advance as tolerated --Acute exacerbation of Crohn's; Follow GI evaluation and recommendations --Acute on Chronic anemia Anemia ; Status post 1 unit PRBC transfusion; Improvement of his H&H, closely monitor Guaiac positive --Hypertensive urgency; Well-controlled today continue current antihypertensives and when necessary medications --The prophylaxis; SCDs, no pharmacologic anticoagulation in view of anemia Severity scale (0 -10): 0 Quality: other Improves with: other Worsens with: other Associated Symptoms: other - Related Data Home Medications Medication Instructions Recorded Confirmed Last Taken Methadone [Dolophine] 9 mg PO QDAY 08/19/19 08/19/19 Unknown Previous Rx's Medication Instructions Recorded Last Taken Type Citalopram [celeXA] 20 mg PO QDAY #30 tablet 08/24/[address] [DepaKOTE DR] 125 mg PO BID #60 tablet 08/24/19 Unknown Rx buPROPion [Wellbutrin] 100 mg PO TID #90 tab 08/24/19 Unknown Rx clonazePAM [ Klonopin] 0.5 mg PO BID PRN #60 tab 08/24/19 Unknown Rx Allergies Allergy/AdvReac Type Severity Reaction Status Date / Time No Known Allergies Allergy Verified 08/19/19 16:22 ED Review of Systems ROS: Stated complaint: MH EVAL Other details as noted in HPI Constitutional: no symptoms reported Eyes: denies: eye discharge ENT: denies: dental pain Respiratory: denies: wheezing Cardiovascular: denies: syncope Gastrointestinal: denies: vomiting Genitourinary: as per HPI Musculoskeletal: as per HPI Skin: as per HPI Neurological: as per HPI Psychiatric: as per HPI Hematological/Lymphatic: as per HPI ED Past Medical Hx - Past Medical History Hx Hypertension: Yes Hx Congestive Heart Failure: No Hx Diabetes: No Hx Kidney Stones: Yes Hx Psychiatric Treatment: Yes ([facility]) Hx Asthma: No Hx COPD: No Additional medical history: Chron's. chronic knee - Surgical History Additional Surgical History: eye - Social History Smoking Status: Never Smoker Substance Use Type: Heroin, Other - Medications Home Medications: Home Medications Medication Instructions Recorded Confirmed Last Taken Type Methadone [Dolophine] 9 mg PO QDAY 08/19/19 08/19/19 Unknown History Citalopram [celeXA] 20 mg PO QDAY #30 tablet 08/24/[address] [DepaKOTE DR] 125 mg PO BID #60 tablet 08/24/19 Unknown Rx buPROPion [Wellbutrin] 100 mg PO TID #90 tab 08/24/19 Unknown Rx clonazePAM [ Klonopin] 0.5 mg PO BID PRN #60 tab 08/24/19 Unknown Rx ED Physical Exam - General Limitations: Other (Patient withdrawn, and appears to be responding to internal stimuli) General appearance: alert, in no apparent distress - Head Head exam: Present: atraumatic, normocephalic - Eye Eye exam: Present: normal appearance - ENT ENT exam: Present: mucous membranes moist - Neck Neck exam: Present: normal inspection - Respiratory Respiratory exam: Present: normal lung sounds bilaterally. Absent: respiratory distress - Cardiovascular Cardiovascular Exam: Present: regular rate, normal rhythm. Absent: systolic murmur, diastolic murmur, rubs, gallop - GI/Abdominal GI/Abdominal exam: Present: soft, normal bowel sounds. Absent: distended, tenderness, guarding, rebound, rigid - Rectal Rectal exam: Present: deferred - Extremities Exam Extremities exam: Present: normal inspection - Back Exam Back exam: Present: normal inspection - Neurological Exam Neurological exam: Present: alert, oriented X3, CN II-XII intact. Absent: motor sensory deficit - Psychiatric Psychiatric exam: Present: normal affect, normal mood - Skin Skin exam: Present: warm, dry, intact, normal color. Absent: rash ED Course Vital Signs 08/19/19 08/19/19 08/19/19 16:23 17:04 17:05 Temperature 98.6 F 99.3 F Pulse Rate 93 H 94 H Respiratory 24 16 Rate Blood Pressure 143/84 Blood Pressure 126/77 [Left] O2 Sat by Pulse 100 98 98 Oximetry 08/19/19 08/19/19 08/19/19 17:15 17:31 17:45 Temperature Pulse Rate 86 89 90 Respiratory 13 13 14 Rate Blood Pressure 127/73 134/69 120/76 Blood Pressure [Left] O2 Sat by Pulse 98 100 98 Oximetry 08/19/19 08/19/19 08/19/19 18:00 18:15 18:30 Temperature Pulse Rate 89 83 95 H Respiratory 14 14 17 Rate Blood Pressure 118/73 118/73 135/82 Blood Pressure [Left] O2 Sat by Pulse 99 98 97 Oximetry 08/19/19 08/19/19 08/19/19 18:45 19:01 19:15 Temperature Pulse Rate 90 96 H 85 Respiratory 11 L 11 L 13 Rate Blood Pressure 136/73 122/78 122/78 Blood Pressure [Left] O2 Sat by Pulse 98 99 98 Oximetry 08/19/19 08/19/19 08/19/19 19:30 19:45 20:00 Temperature Pulse Rate 86 83 83 Respiratory 16 17 17 Rate Blood Pressure 127/78 119/69 116/65 Blood Pressure [Left] O2 Sat by Pulse 98 98 98 Oximetry 08/19/19 08/19/19 08/19/19 20:15 20:30 20:45 Temperature Pulse Rate 83 84 79 Respiratory 15 14 14 Rate Blood Pressure 122/71 115/70 110/73 Blood Pressure [Left] O2 Sat by Pulse 100 98 Oximetry 08/19/19 08/19/19 08/19/19 21:00 21:30 22:30 Temperature Pulse Rate 82 81 81 Respiratory 12 13 15 Rate Blood Pressure 119/71 125/74 105/57 Blood Pressure [Left] O2 Sat by Pulse 99 100 99 Oximetry 08/19/19 08/19/19 08/20/19 23:00 23:15 00:00 Temperature Pulse Rate 80 81 82 Respiratory 17 16 12 Rate Blood Pressure 113/63 133/80 122/79 Blood Pressure [Left] O2 Sat by Pulse 98 98 100 Oximetry 08/20/19 08/20/19 08/20/19 00:45 01:00 01:31 Temperature Pulse Rate 78 76 73 Respiratory 17 15 17 Rate Blood Pressure 122/79 124/79 142/90 Blood Pressure [Left] O2 Sat by Pulse 99 100 99 Oximetry 08/20/19 08/20/19 08/20/19 01:45 02:00 02:32 Temperature 98.5 F Pulse Rate 75 74 81 Respiratory 12 14 14 Rate Blood Pressure 142/90 126/74 Blood Pressure 124/79 [Left] O2 Sat by Pulse 99 100 100 Oximetry 08/20/19 08/20/19 08/20/19 03:01 05:01 06:00 Temperature Pulse Rate 77 73 80 Respiratory 10 L 15 15 Rate Blood Pressure 124/79 119/68 109/67 Blood Pressure [Left] O2 Sat by Pulse 99 98 100 Oximetry 08/20/19 08/20/19 08/20/19 07:01 07:37 08:01 Temperature 97.9 F Pulse Rate 73 73 80 Respiratory 18 18 10 L Rate Blood Pressure 119/68 119/44 Blood Pressure 109/67 [Left] O2 Sat by Pulse 98 99 99 Oximetry 08/20/19 08/20/19 08/20/19 08:31 15:00 20:00 Temperature 98 F 99.3 F Pulse Rate 79 84 Respiratory 18 17 18 Rate Blood Pressure Blood Pressure 143/92 128/75 [Left] O2 Sat by Pulse 99 98 Oximetry 08/20/19 08/21/19 08/21/19 21:28 01:00 08:43 Temperature 98.9 F Pulse Rate 80 Respiratory 18 16 18 Rate Blood Pressure Blood Pressure 130/70 [Left] O2 Sat by Pulse 99 98 Oximetry 08/21/19 08/21/19 08/21/19 08:54 14:00 19:50 Temperature 98.0 F 98.6 F 99.2 F Pulse Rate 88 89 87 Respiratory 18 18 18 Rate Blood Pressure 147/95 Blood Pressure 145/99 116/89 [Left] O2 Sat by Pulse 98 98 Oximetry 08/21/19 08/22/19 08/22/19 21:33 01:39 07:37 Temperature 98.2 F 98.4 F Pulse Rate 88 85 Respiratory 18 18 20 Rate Blood Pressure 145/95 Blood Pressure 152/98 [Left] O2 Sat by Pulse 98 100 Oximetry 08/22/19 08/22/19 08/23/19 11:07 19:04 01:48 Temperature 98.4 F 97.5 F L Pulse Rate 82 81 Respiratory 20 18 16 Rate Blood Pressure Blood Pressure 137/84 151/98 [Left] O2 Sat by Pulse 99 99 Oximetry 08/23/19 08/23/19 08/24/19 07:43 20:20 01:50 Temperature 97.9 F 98.5 F 98.2 F Pulse Rate 88 82 86 Respiratory 20 18 16 Rate Blood Pressure Blood Pressure 127/100 131/80 140/89 [Left] O2 Sat by Pulse 99 99 99 Oximetry 08/24/19 08/24/19 08/24/19 08:00 11:05 12:32 Temperature 98.2 F 98.1 F Pulse Rate 76 87 Respiratory 18 18 18 Rate Blood Pressure Blood Pressure 131/88 127/83 [Left] O2 Sat by Pulse 99 100 Oximetry - Reevaluation(s) Reevaluation #1: Patient's hemoglobin is now 8. I do not believe he has an acute exacerbation of Crohn's. His white count is normal. White count is normal. He is medically appropriate for psychiatric disposition. 08/24/19 14:06 ED Medical Decision Making - Lab Data Result diagrams: 08/24/19 10:44 08/24/19 10:44 Laboratory Results - last 24 hr 08/24/19 08/24/19 08/24/19 10:44 10:44 10:44 WBC 9.1 RBC 5.22 H Hgb 8.0 L Hct 27.9 L MCV 54 L MCH 15 L MCHC 29 L RDW 19.7 H Plt Count 656 H Lymph % (Auto) 14.9 [place] % (Auto) 8.5 H Eos % (Auto) 0.6 Baso % (Auto) 1.7 Lymph # 1.4 [place] # 0.8 Eos # 0.1 Baso # 0.2 H Seg Neutrophils % 74.3 H Seg Neutrophils # 6.7 PT 13.5 INR 1.02 APTT 30.3 Sodium 134 L Potassium 4.3 Chloride 98.9 Carbon Dioxide 23 Anion Gap 16 BUN 16 Creatinine 0.8 Estimated GFR > 60 BUN/Creatinine Ratio 20 Glucose 105 H Calcium 9.5 Total Bilirubin 0.30 Direct Bilirubin < 0.2 Indirect Bilirubin 0.1 AST 29 ALT 12 Alkaline Phosphatase 92 Total Protein 7.6 Albumin 3.7 L Albumin/Globulin Ratio 0.9 Blood Type Antibody Screen 08/24/19 10:44 WBC RBC Hgb Hct MCV MCH MCHC RDW Plt Count Lymph % (Auto) [place] % (Auto) Eos % (Auto) Baso % (Auto) Lymph # V[place] # Eos # Baso # Seg Neutrophils % Seg Neutrophils # PT INR APTT Sodium Potassium Chloride Carbon Dioxide Anion Gap BUN Creatinine Estimated GFR BUN/Creatinine Ratio Glucose Calcium Total Bilirubin Direct Bilirubin Indirect Bilirubin AST ALT Alkaline Phosphatase Total Protein Albumin Albumin/Globulin Ratio Blood Type O POSITIVE Antibody Screen Negative Critical care attestation.: If time is entered above; I have spent that time in minutes in the direct care of this critically ill patient, excluding procedure time. ED Disposition Clinical Impression: Overdose, Psychosis, Medical clearance for psychiatric admission Disposition: [id number] PSY HOSP/PSY UNIT Is pt being admited?: No Does the pt Need Aspirin: No Condition: Stable Prescriptions: Citalopram [celeXA] 20 mg PO QDAY #[address] [DepaKOTE DR] 125 mg PO BID #60 tablet clonazePAM [ Klonopin] 0.5 mg PO BID PRN #60 tab PRN Reason: Anxiety buPROPion [Wellbutrin] 100 mg PO TID #90 tab Referrals: PRIMARY CARE, [Primary Care Provider] - 3-5 Days Time of Disposition: 14:07
[2019-08-24 11:21] VITALS: BP 127/83
[2019-08-24 11:25] LABS: Basophils # (Auto) 0.2 K/mm3 (0.0-0.1); Basophils % (Auto) 1.7 % (0.0-1.8); Eosinophils # (Auto) 0.1 K/mm3 (0.0-0.4); Eosinophils % (Auto) 0.6 % (0.0-4.3); Lymphocytes # (Auto) 1.4 K/mm3 (1.2-5.4); Lymphocytes % (Auto) 14.9 % (13.4-35.0); Mean Corpuscular HGB Conc 29 % (32-34); Monocytes # (Auto) 0.8 K/mm3 (0.0-0.8); Monocytes % (Auto) 8.5 % (0.0-7.3); Platelet Count 656 K/mm3 (140-440); Red Blood Count 5.22 M/mm3 (3.65-5.03); Red Cell Distribution Width 19.7 % (13.2-15.2)
[2019-08-24 11:26] LABS: Hematocrit 27.9 % (35.5-45.6); Mean Corpuscular Volume 54 fl (84-94)
[2019-08-24 11:33] LABS: Alanine Aminotransferase 12 units/L (7-56); Albumin 3.7 g/dL (3.9-5); BUN/Creatinine Ratio 20; Bilirubin,Direct < 0.2 mg/dL (0-0.2); Blood Urea Nitrogen 16 mg/dL (9-20); Calcium 9.5 mg/dL (8.4-10.2); Hemolysis Index 7
[2019-08-24 11:36] LABS: INR 1.02 (0.87-1.13)
[2019-08-24 11:37] LABS: Partial Thromboplastin Time 30.3 Sec. (24.2-36.6)
[2019-08-24] MEDS ORDERED: MORPHINE 4 MG/1 ML INJ IV ONE (12:20)
[2019-08-24] MEDS ORDERED: ONDANSETRON 4 MG/2 ML INJ IV ONE (12:20)
--- NOTE | 2019-08-24 13:40 | Progress Note ---
Subjective - Reason for Consult Consult date: 08/24/19 Reason for consult: overdose - Chief Complaint Chief complaint: The patient's medical record was reviewed at the patient's progress was discussed with the nursing staff. During my interview with the patient today. He is lying in bed awake. A/o x 3. He is calm and cooperative. He is pleasant. He makes good eye contact. The patient states that his "stomach was hurting." He says he has to get "blood." He says "from a psych standpoint, I feel 100." He denies SI/HI or any fear or endangerment of going home. He says "I miss my and my dog." He then says "especially my dog. It's a huskie." Thee patient denies hallucinations of any kind. He says upon discharge his is checking himself into [facility] He says he's "spoken to them before but they wanted me to get clean." The patient says his appetite is good and he slept good. He thanks me for coming to speak with him. REVIEW OF SYSTEMS Constitutional: Negative for weight loss ENT: Negative for stridor Respiratory: Negative for cough or hemoptysis All other systems reviewed and are negative MENTAL STATUS EXAMINATION General Appearance: Dressed appropriately Behavior: calm and cooperative. Polite Mood: "100" Affect: Congruent with stated mood Speech: Normal tone and pace Thought Process: Goal directed Thought Content: Suicidal Ideation: Denies Homicidal Ideation: Denies Hallucinations: Denies Delusions: None elicited Insight and Judgment: Limited Memory/Cognition: Limited Assessment Substance Induced Mood Disorder Plan Medications Depakote DR 125mg po BID Klonopin 0.5mg po BID prn anxiety Celexa 20mg po daily Wellbutrin 1100mg po TID Sitter: Defer to primary Medical: Per primary Disposition: The patient does note meets the criteria for acute inpatient psychiatric treatment. He may discharge home once medically clear. The patient understands that if suicidal or self harm thoughts or any feelings of endangerment are to arise he is to seek immediate assistance including but not limited to the crisis hotline, 911 or/and the ER. The patient is to abstain from all illicit drugs and alcohol. He should follow up with primary or out patient psychiatry in 7 to 14 days. The supervisor dock to give the patient recourses for out patient and drug rehabilitation programs. The treatment plan and medications, including benefits and side effects was discussed with the patient. He verbalizes understanding. Please call with any questions or concerns. Thank you for this consult. Mental Status Exam - Vital signs Last Vital Signs Temp 98.1 F 08/24/19 11:05 Pulse 87 08/24/19 11:05 Resp 18 08/24/19 12:32 BP 127/83 08/24/19 11:05 Pulse Ox 100 08/24/19 11:05
[2019-08-24] MEDS ORDERED: FERROUS GLUCONATE 324 MG TAB PO SCH (20:00)
== END 2019-08-24 15:15 ==
LOC: ED 16:18 → EEVIPCON 16:18 → ED 08-24 15:15
DX: T50.901A Poisoning by unspecified drugs, medicaments and biological substances, accidental (unintentional), initial encounter (principal); F29 Unspecified psychosis not due to a substance or known physiological condition; I10 Essential (primary) hypertension; F19.10 Other psychoactive substance abuse, uncomplicated; Z87.442 Personal history of urinary calculi; Z98.890 Other specified postprocedural states; Y92.89 Other specified places as the place of occurrence of the external cause
CPT/HCPCS: 36415; 80048; 80076; 80307; 81001; 82550; 83735; 85025; 85610; 85730; 86850; 86900; 86901; 93005; 96372; 96374; 96375; 99285; C9113; J1630; J2060; J2270; J7030; 80320; G0480; Q0162